=== PATIENT | male | born 1975 | race Caucasian/White ===

== ENCOUNTER 2017-10-28 15:50 | Inpatient (IN) | payer SELFPAY ==
[~2017-10-28] VITALS: Ht 185.4 cm; Wt 64.9 kg
--- NOTE | ~2017-10-28 | EKG ---
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
[2017-10-28 15:50] VITALS: BP 139/78
[~2017-10-28 15:50] MED LIST: CLARITIN10 MG PO; HYDROCODONE BIT1 T11 PO; MOTRIN600 MG PO; MOTRIN800 MG PO; NAPROSYN500 MG PO; NEXIUM40 MG PO
[2017-10-28 16:27] LABS: BILIRUBIN 2+ (NEGATIVE); BLOOD NEGATIVE (NEGATIVE); CLARITY CLEAR (CLEAR); GLUCOSE TRACE (NEGATIVE); KETONE TRACE (NEGATIVE); LEUKO ESTERASE NEGATIVE (NEGATIVE); NITRITE POSITIVE (NEGATIVE); PH 6.5 (5.0-9.0); UROBILINOGEN >= 8.0 E.U./dl (0.2-1.0)
[2017-10-28 16:36] LABS: URINE AMPHETAMINES < 1000 (1000ng/ml); URINE BARBITURATES < 200 (200ng/ml); URINE BENZODIAZEPINES < 200 (200ng/ml); URINE CANNABINOIDS (THC) < 50 (50ng/ml); URINE COCAINE < 300 (300ng/ml); URINE METHADONE < 300 (300ng/ml); URINE OPIATES > 300 (300ng/ml)
[2017-10-28 16:37] LABS: MUCOUS 1+
[2017-10-28 16:38] LABS: COLOR ORANGE (YELLOW)
[2017-10-28 16:42] LABS: BASO # 0.1 10*3/uL (0.0-0.1); BASO % 1.1 % (0.0-1.0); EOS # 0.1 10*3/uL (0.0-0.4); EOS % 0.9 % (1.0-4.0); HEMATOCRIT 38.5 % (42.0-52.0); HEMOGLOBIN 13.9 g/dl (14.0-18.0); LYMPH # 2.3 10*3/uL (1.3-4.4); LYMPH % 24.6 % (27.0-41.0); MEAN CELL VOLUME 101.3 fl (80.0-94.0); MEAN CORPUSCULAR HGB 36.6 pg (27.0-31.0); MEAN CORPUSCULAR HGB CONC 36.1 g/dl (33.0-37.0); MEAN PLATELET VOLUME 11.2 fl (9.6-12.3); MONO # 0.7 10*3/uL (0.1-1.0); MONO % 7.7 % (3.0-9.0); NEUT # 6.2 10*3/uL (2.3-7.9); NEUT % 65.3 % (47.0-73.0); PLATELET COUNT AUTOMATED 138 10*3/uL (130-400); RED CELL DISTRI WIDTH 12.3 % (0-14.5); WHITE BLOOD COUNT 9.5 10*3/uL (4.8-10.8)
[2017-10-28 16:42] LABS: URINE PHENCYCLIDINE < 25 (25ng/ml)
[2017-10-28 16:51] LABS: ACT PARTIAL THROMBO TIME 25.7 SECONDS (20.8-31.5); INTERNATIONAL NORM RATIO 1.3 (2.0-3.5)
[2017-10-28 16:58] LABS: ALBUMIN 3.5 gm/dl (3.1-4.5); ALKALINE PHOSPHATASE 117 U/L (45-117); BUN 8 mg/dl (7-24); CHLORIDE 93 mmol/L (98-107); CREATININE 0.55 mg/dL (0.70-1.30); LIPASE 577 U/L (73-393); SGOT/AST 150 IU/L (3-35); SGPT/ALT 61 U/L (12-78); SODIUM 131 mmol/L (136-145); TOTAL PROTEIN 7.2 gm/dL (6.4-8.2)
[2017-10-28 17:00] LABS: TROPONIN I < 0.015 ng/ml (<0.045)
[2017-10-28 17:45] VITALS: BP 150/102
[2017-10-28 20:00] VITALS: BP 124/55; BP 144/95
[2017-10-29] VITALS: BP 124/52
[2017-10-29 06:50] LABS: BASO # 0.1 10*3/uL (0.0-0.1); BASO % 0.9 % (0.0-1.0); EOS # 0.1 10*3/uL (0.0-0.4); EOS % 1.2 % (1.0-4.0); HEMATOCRIT 34.4 % (42.0-52.0); HEMOGLOBIN 12.1 g/dl (14.0-18.0); LYMPH # 1.6 10*3/uL (1.3-4.4); LYMPH % 23.6 % (27.0-41.0); MEAN CELL VOLUME 102.1 fl (80.0-94.0); MEAN CORPUSCULAR HGB 35.9 pg (27.0-31.0); MEAN CORPUSCULAR HGB CONC 35.2 g/dl (33.0-37.0); MEAN PLATELET VOLUME 11.6 fl (9.6-12.3); MONO # 0.5 10*3/uL (0.1-1.0); MONO % 7.1 % (3.0-9.0); NEUT # 4.5 10*3/uL (2.3-7.9); NEUT % 66.6 % (47.0-73.0); PLATELET COUNT AUTOMATED 115 10*3/uL (130-400); RED BLOOD COUNT 3.37 10*6/uL (4.50-5.90); RED CELL DISTRI WIDTH 12.4 % (0-14.5); WHITE BLOOD COUNT 6.8 10*3/uL (4.8-10.8)
[2017-10-29 07:30] LABS: CHLORIDE 103 mmol/L (98-107); POTASSIUM 3.6 mmol/L (3.5-5.1); SODIUM 137 mmol/L (136-145)
[2017-10-29 07:43] LABS: ALBUMIN 3.1 gm/dl (3.1-4.5); ALKALINE PHOSPHATASE 97 U/L (45-117); BUN 7 mg/dl (7-24); CHOLESTEROL 76 mg/dL (<200); CREATININE 0.39 mg/dL (0.70-1.30); FREE T4 1.02 ng/dl (0.76-1.46); HDL CHOLESTEROL 32 mg/dl (40-60); LDL CHOLESTEROL 30 mg/dL (9-159); PHOSPHOROUS 3.4 mg/dL (2.5-4.9); SGOT/AST 145 IU/L (3-35); SGPT/ALT 57 U/L (12-78); TOTAL PROTEIN 6.3 gm/dL (6.4-8.2); TRIGLYCERIDES 69 mg/dl (<150); VLDL CHOLESTEROL 14 mg/dL (6-40)
[2017-10-29 08:00] VITALS: BP 130/60
[2017-10-29 09:02] LABS: VITAMIN D, 25-HYDROXY 8.6 ng/mL (30-100)
[2017-10-29 17:53] VITALS: BP 160/90
[2017-10-30 06:36] LABS: BASO # 0.1 10*3/uL (0.0-0.1); BASO % 0.8 % (0.0-1.0); EOS # 0.1 10*3/uL (0.0-0.4); EOS % 1.1 % (1.0-4.0); HEMATOCRIT 35.2 % (42.0-52.0); HEMOGLOBIN 12.2 g/dl (14.0-18.0); LYMPH # 1.5 10*3/uL (1.3-4.4); LYMPH % 23.5 % (27.0-41.0); MEAN CELL VOLUME 103.5 fl (80.0-94.0); MEAN CORPUSCULAR HGB 35.9 pg (27.0-31.0); MEAN CORPUSCULAR HGB CONC 34.7 g/dl (33.0-37.0); MEAN PLATELET VOLUME 12.1 fl (9.6-12.3); MONO # 0.5 10*3/uL (0.1-1.0); MONO % 8.1 % (3.0-9.0); NEUT # 4.3 10*3/uL (2.3-7.9); NEUT % 66.2 % (47.0-73.0); PLATELET COUNT AUTOMATED 118 10*3/uL (130-400); RED CELL DISTRI WIDTH 12.1 % (0-14.5); WHITE BLOOD COUNT 6.5 10*3/uL (4.8-10.8)
[2017-10-30 06:40] LABS: ALBUMIN 3.2 gm/dl (3.1-4.5); ALKALINE PHOSPHATASE 98 U/L (45-117); BUN 3 mg/dl (7-24); CHLORIDE 101 mmol/L (98-107); CREATININE 0.38 mg/dL (0.70-1.30); IRON 257 ug/dL (65-175); LIPASE 409 U/L (73-393); POTASSIUM 3.7 mmol/L (3.5-5.1); SGOT/AST 104 IU/L (3-35); SGPT/ALT 50 U/L (12-78); SODIUM 137 mmol/L (136-145); TOTAL IRON BINDING CAPACITY 271 ug/dl (250-450); TOTAL PROTEIN 6.6 gm/dL (6.4-8.2)
[2017-10-30 07:34] VITALS: BP 180/100
[2017-10-30 09:45] VITALS: BP 152/90
[2017-10-30] MEDS ORDERED: VITAMIN D350000 UNIT PO (13:38)
[2017-10-30] MEDS ORDERED: NEXIUM40 MG PO (13:38)
[2017-10-30] MEDS ORDERED: PRINIVIL20 M1 PO (13:38)
== END 2017-10-30 14:11 | disposition home or self-care (01) | DRG 439 ==
LOC: ED 15:50 → EDHOLD 17:38 → 5E 17:38
PROVIDERS: Internal Medicine
DX: K85.20 Alcohol induced acute pancreatitis without necrosis or infection (principal); E87.1 Hypo-osmolality and hyponatremia; R74.0 Nonspecific elevation of levels of transaminase and lactic acid dehydrogenase [LDH]; R00.0 Tachycardia, unspecified; Z72.0 Tobacco use; Z71.6 Tobacco abuse counseling; F11.90 Opioid use, unspecified, uncomplicated; F10.20 Alcohol dependence, uncomplicated; K21.9 Gastro-esophageal reflux disease without esophagitis; D53.9 Nutritional anemia, unspecified; E87.6 Hypokalemia; E83.42 Hypomagnesemia; E83.119 Hemochromatosis, unspecified; Z91.030 Bee allergy status; Z79.899 Other long term (current) drug therapy; Z80.8 Family history of malignant neoplasm of other organs or systems

== ENCOUNTER → 2017-12-22 | Outpatient (CLI) | payer SELFPAY ==
[~2017-12-22] MED LIST changes: +PRINIVIL20 M1 PO; +VITAMIN D350000 UNIT PO
== END | disposition home or self-care (01) ==
LOC: RESCLI 02:34 → SDC 20:13 → RESCLI 20:13
DX: I10 Essential (primary) hypertension (principal); K86.0 Alcohol-induced chronic pancreatitis; K21.9 Gastro-esophageal reflux disease without esophagitis; E55.9 Vitamin D deficiency, unspecified; F17.200 Nicotine dependence, unspecified, uncomplicated; Z79.899 Other long term (current) drug therapy

== ENCOUNTER → 2017-12-28 | Outpatient (CLI) | payer SELFPAY | END | disposition home or self-care (01) | LOC: CT 08:00 | DX: E83.119 Hemochromatosis, unspecified (principal); E83.10 Disorder of iron metabolism, unspecified; I10 Essential (primary) hypertension; F17.200 Nicotine dependence, unspecified, uncomplicated ==

== ENCOUNTER 2018-06-21 00:53 | Inpatient (IN) | payer SELFPAY ==
[~2018-06-21] VITALS: Ht 182.8 cm; Wt 64.6 kg
[2018-06-21] VITALS (11 sets, daily range): BP systolic 112–172; BP diastolic 70–112
--- NOTE | ~2018-06-21 | PR ---
[place], [place] PROGRESS NOTE NAME: ANURADHA MARIA UNIT #: [id number] ROOM: [facility] DOCTOR: LEIGH ANN DURANT MD,FINN BIRTHDATE: [birth year] DOS: 06/26/2018 PULMONARY CRITICAL CARE EVALUATION AND MANAGEMENT SUBJECTIVE: The patient was seen and examined. Remains on the mechanical ventilator. The antibiotic was changed yesterday morning with broad spectrum intravenous antibiotics. He has not been noted any hemodynamic stability and did not require any vasopressor support. The patient has not been noted with any feeding issue and was continued to be fed through the NG tube. Mental status is still not noted appropriate. Yesterday sedation was discontinued. The patient was receiving current mechanical ventilation at the present time with 40% oxygen supplementation. He has been yesterday started on intravenous meropenem. The patient was also started on vancomycin by the primary care attending today. Sedation was continued with Diprivan and Versed combination, which seemed to remain effective. He was noted with fever of 101 degree Fahrenheit to low-grade fever intermittently at times OBJECTIVE: GENERAL: The patient is currently intubated, noted on mechanical ventilation at this time, sedated. VITAL SIGNS: Temperature 101.9 degree Fahrenheit to low grade fever, respiratory 21-23, heart 130, sinus tachycardia 102 beats per minute, blood pressure 160/102-156/99. Intake of 3.575 liters was 551 mL. Pulse oxygen saturation recorded on 40% oxygen 97% saturation. HEENT: Examination shows head was atraumatic. Eyes nonicterus. NECK: Supple. CARDIOVASCULAR: S1, S2 is audible. LUNGS: Noted with decreased breath sounds in the lungs bilaterally. There were no crackles heard. ABDOMEN: Soft, nontender. Bowel sounds present. EXTREMITIES: Noted with mild edema as well. MUSCULOSKELETAL: Noted without any acute deformity. CENTRAL NERVOUS SYSTEM: Currently, the patient is sedated. LABORATORY DATA: Culture of the endotracheal aspiration on 06/23/2018 showed normal yancy. The CBC that was done on 06/26/2018, WBC count 11.3, hemoglobin 12.1, platelet counts were normal. CMP this morning as BUN normal, creatinine normal, glucose 124 and sodium 135. Arterial blood gas this morning, pH of 7.45, pCO2 of 36, pO2 of 67 with 40% oxygen supplementation. The chest x-ray done this morning, endotracheal tube and NG tube are noted in appropriate position, basilar area of infiltration with interval development of pleural fluids bilaterally. CMP this morning as BUN normal, creatinine normal, glucose 124. Sodium 135. Magnesium was 1.4. AST was 72. CBC: WBC count 11.3, hemoglobin 12.1, platelet count 145,000. IMPRESSION: 1. The patient with persistent acute respiratory failure with mostly developing fluid overload, congestive heart failure at this time, but with acute pneumonia and ventilator-associated pneumonia, superimposed cannot be completely excluded. 2. Recent pancreatitis with chronic alcohol dependence. [place], [place] PROGRESS NOTE NAME: ANURADHA MARIA UNIT #: [id number] ROOM: [facility] DOCTOR: LEIGH ANN DURANT MD,FINN BIRTHDATE: [birth year] 3. Mild leukocytosis and anemia. PLAN OF MANAGEMENT: The patient will be given 1 dose of IV Lasix 40 mg daily. Continue ventilatory support, assessment and correction of the electrolytes will be continued. Continue nutrition support as well. Other additional treatment changes would be made based on the progression of the illness. From tomorrow, the nutrition support will be done gradually to increase the maximal calorie intake as needed. Other therapy, plan of management, and additional treatment changes will be made for based on progression of the illness. Usual care, other therapy, plan of management, and care plan. Prognosis of the patient remains guarded. After the culture results new one when available, make further modification of antibiotics accordingly. Order the endotracheal aspirate, Gram stain and culture as well. Total time in pulmonary critical evaluation and management today was 34 minutes. FINN BELTRÁN MD CM:PNTRANS [phone] FINN DURANT MD 06/27/18 0134 interface
--- NOTE | ~2018-06-21 | PR ---
[place], [place] PROGRESS NOTE NAME: ANURADHA MARIA UNIT #: [id number] ROOM: 521 DOCTOR: LEIGH ANN DURANT MD,FINN BIRTHDATE: [birth year] DOS: 06/29/2018 PULMONARY PROGRESS NOTE The patient is independently seen and examined in aeti-bg-[id number] encounter, history was confirmed, physical examination performed, labs were reviewed. Note done by the medical lab technician was approved as well. The assessment for today's visit was personally completed. SUBJECTIVE: The patient has been noted very comfortable at this time, awake, alert and oriented this morning of assessment, comfortably lying in the bed. Denies any symptoms of chest pain, coughing, or shortness of breath as well. Denies symptoms of hemoptysis. Complaining of some nonspecific abdominal pain as well. Denies symptoms of nausea or vomiting. Remaining systems were reviewed, they were noted all negative. OBJECTIVE: VITAL SIGNS: Normal temperature up to 99.2 degrees Fahrenheit, respiratory rate 14-20, heart rate of 99-104, blood pressure 180/95-135/85. The pulse oxygen saturation on room air is 95% saturation. HEENT: Head is atraumatic. Dry nasal mucosa. NECK: Supple. CARDIOVASCULAR: S1 and S2 audible. LUNGS: Noted without any wheezing or crackles at the present time. ABDOMEN: Soft, nontender. Bowel sounds present. EXTREMITIES: Without acute edema. MUSCULOSKELETAL: Without acute deformities. CENTRAL NERVOUS SYSTEM: Appeared to be intact in general. LABORATORY DATA: CMP today - sodium 135, potassium 3.4. AST 93, ALT normal. CBC this morning - WBC count 8.9, hemoglobin 11.7, platelet count normal. DIAGNOSTIC DATA: Chest x-ray that was done this morning, 1 view, reviewed, noted with continued improvement in aeration of the left lung. IMPRESSION: The patient who has been currently noted with: 1. Resolving acute pneumonia with current antibiotics, status post liberation of mechanical ventilation, improvement in mental status with alcohol withdrawal. 2. Clinical resolution of acute pancreatitis. 3. History of chronic alcohol use. 4. Electrolyte imbalance. 5. Mild hypokalemia. 6. Acute exacerbation of chronic obstructive pulmonary disease, which is improving. PLAN OF MANAGEMENT: Supplementation of potassium ordered, intake of food. Physical therapy and occupational therapy. Bronchodilators. Decrease Solu-Medrol dose to 40 mg daily. Transfer the patient from ICU to medical floor. Physical therapy, other treatment therapy plan of management and care plan. Other supportive plan of management with additional treatment changes [place], [place] PROGRESS NOTE NAME: ANURADHA MARIA UNIT #: [id number] ROOM: 521 DOCTOR: FINN QUINTERO MD BIRTHDATE: [birth year] will be going to be made based on progression of the illness. FINN BELTRÁN MD CM:ASHLEY [id number] FINN DURANT MD 08/13/18 0907 interface
--- NOTE | ~2018-06-21 | PR ---
[place], [place] PROGRESS NOTE NAME: ANURADHA MARIA UNIT #: [id number] ROOM: 521 DOCTOR: LEIGH ANN DURANT MD,FINN BIRTHDATE: [birth year] DOS: 07/01/2018 PULMONARY PROGRESS NOTE SUBJECTIVE: The patient is independently seen and examined in [id number] encounter, history was confirmed. Physical examination was performed. Labs were reviewed. Assessment and management for today's note was personally completed. Note done by the lead medical technologist was approved. He has been noted quite comfortable. The patient is sitting on the side of bed this morning without any acute distress. He has not been reported any symptoms of chest pain. Coughing has been noted minimal. OBJECTIVE: VITAL SIGNS: Temperature normal, respiratory rate 20, heart rate 107, blood pressure 130/78. Pulse oxygen saturation recorded on room air 97% saturation. HEENT: Head was atraumatic. Eyes nonicterus. NECK: Supple. CARDIOVASCULAR: S1, S2 audible. LUNGS: The patient noted clear to auscultation bilaterally. ABDOMEN: Soft, nontender, bowel sounds present. EXTREMITIES: No acute edema. IMPRESSION: Resolved acute respiratory failure, resolving acute pneumonia gradually and progressively, acute pancreatitis, and alcohol dependence. Acute exacerbation of chronic obstructive pulmonary disease, resolving as well. PLAN OF TREATMENT: Discharge planning could be started per primary care attending. No other change in treatment at this time will be recommended. FINN BELTRÁN MD CM:PNTRANS [id number] FINN DURANT MD 07/02/18 0011 interface
--- NOTE | ~2018-06-21 | CON ---
[place], [place] REPORT OF CONSULTATION NAME: ANURADHA MARIA UNIT #: [id number] ROOM: 521 DOCTOR: LEIGH ANN DURANT MD,FINN BIRTHDATE: [birth year] DOS: 06/24/2018 PULMONARY/CRITICAL CARE CONSULTATION, EVALUATION AND MANAGEMENT CONSULTATION REQUESTED BY: Hospitalist Service. REASON FOR CONSULTATION: Acute respiratory failure, pancreatitis, and change in mental status as well with alcohol withdrawal. HISTORY OF PRESENT ILLNESS: The patient is a 42-year-old white male who has been hospitalized under the care of Hospitalist Service on 06/21/2018. History in this documentation is from review of the medical records by the other physicians' notes as the patient is unable to give me any history. The patient is admitted to the hospital with past history of pancreatitis, related to chronic alcoholism. The patient is admitted to hospital because of increased abdominal pain with swelling of the stomach reported. The patient is noted with diffuse abdominal pain as well. Pain has been reported on a scale of 10/10. The patient has been given pain medications. He continues to drink alcohol on occasion in the form of vodka. He has not been reported with any respiratory symptoms on admission. He has been treated conservatively for pancreatitis, diagnosed as a problem in the Intensive Care Unit. Also was reported as a diagnosis of pneumonia as well, left lower lobe. The patient has been noted with increased oxygen requirement with alcohol withdrawal, with increased sedation, change in mental status, was intubated, started on mechanical ventilation yesterday. The patient currently remains on mechanical ventilator on assist control, volume control mechanical ventilation, oxygen supplementation, was gradually decreased up to 40% with assist control mode of mechanical ventilation. REVIEW OF SYSTEMS: Could not be completed since the patient currently intubated and noted on mechanical ventilation, receiving sedation in the form of intravenous Diprivan. PAST MEDICAL HISTORY: Reported with: 1. History of pancreatitis in the past as well. 2. Chronic alcohol use in the form of vodka. 3. Macrocytic anemia, secondary to alcohol dependence. 4. Gastroesophageal reflux. 5. History of hemochromatosis. 6. Essential hypertension. 7. Chronic opiate dependence. 8. Separation of the right acromioclavicular joint. 9. Nicotine dependence. PAST SURGICAL HISTORY: None reported. SOCIAL HISTORY: The patient has a history of alcohol dependence and tobacco use noted chronically. The details of the patient's tobacco use are unknown. There is no history of illicit drug use reported. [place], [place] REPORT OF CONSULTATION NAME: ANURADHA MARIA UNIT #: [id number] ROOM: 521 DOCTOR: LEIGH ANN DURANT MD,FINN BIRTHDATE: [birth year] FAMILY HISTORY: Father of unknown cancer. Mother is living, history of cervical cancer reported. HOME MEDICATIONS: Listed are vitamin D, omeprazole, and lisinopril. CURRENT ACTIVE MEDICATIONS: Administered on this hospitalization were noted as enalapril intravenously p.r.n. for hypertensive response, Cardizem via the NG tube, DuoNeb q. four hours, lisinopril, nicotine replacement patch, Lovenox for DVT prophylaxis, Peridex rinse, intravenous midazolam p.r.n. use 5 mg, IV Rocephin, Zithromax, lorazepam, and some other p.r.n. meds. DRUG ALLERGIES: Noted as no known drug allergies. PHYSICAL EXAMINATION: GENERAL: This is a 42-year-old male patient, currently intubated with mechanical ventilation, without any distress. Height of 6 feet, weight of 142 pounds, BMI 19.3. VITAL SIGNS: Low-grade fever rectally noted as 100 degrees Fahrenheit, with normal temperature otherwise. Respiratory rate recorded as 28-24, heart rate is sinus tachycardia 120-125 beats per minute, blood pressure 172/113-162/112 recorded. In last 24 hours, intake 3.12 liters, output was 953 mL. Pulse ox saturation on 40% oxygen is 95% saturation with assist control, volume control mechanical ventilation. HEENT: Examination shows head is atraumatic. Eyes nonicterus. The patient is currently intubated. NECK: Supple. CARDIOVASCULAR: S1 and S2 audible. LUNGS: Noted with mild decreased breath sounds. There was no evidence of wheezing. No crackles heard on auscultation. ABDOMEN: Soft, nontender. Bowel sounds present. EXTREMITIES: Noted without any acute edema, loss of muscle mass. VISIBLE SKIN: No lesions or rashes. CENTRAL NERVOUS SYSTEM: Cannot be examined at the present time. LABORATORY DATA: Admission lactic acid on 06/21/2018 was 2.2. CMP on 06/21/2018 on admission: Normal BUN and creatinine, glucose normal, sodium 129, potassium 3.2, AST of 149, ALT normal, alkaline phosphatase 208, lipase 1422, amylase 214. Ethyl alcohol level 287. CBC on 06/21/2018 on admission: WBC count 16.5, hemoglobin 11.8, MCV 105, platelet count normal. Ammonia level this morning is noted normal at 18. CBC that was done yesterday: WBC count 7.8, hemoglobin 10.6, and platelet count was normal. CMP that was done yesterday: Normal BUN and creatinine remained, sodium 135, total bilirubin 1.7, albumin 2.5, total protein of 6.1. Lipase 545. CMP this morning essentially noted sodium 133, potassium 3.3. AST of 89, ALT normal. CBC this morning: WBC count 12.9, hemoglobin 11.9, platelet count normal. Endotracheal aspirate Gram stain: Many white blood cells, rare Gram-positive cocci in pairs, rare Gram-positive bacilli. Arterial blood gases were done yesterday, first arterial blood gas at 1005 a.m. - pH of 7.43, pCO2 of 40, pO2 of 83. This was done on oxygen. The arterial blood gas later done post-intubation - pH of 7.43, pCO2 of 40.8, pO2 of 80 on 40% oxygen. The arterial blood gas this morning - pH of 7.49, pCO2 of 32, [place], [place] REPORT OF CONSULTATION NAME: ANURADHA MARIA UNIT #: [id number] ROOM: 521 DOCTOR: LEIGH ANN DURANT MD,[facility] BIRTHDATE: [birth year] pO2 of 80 on 40% oxygen. RADIOLOGY DATA: Review of the radiology data was personally done. CT thoracic images obtained with CT scan of the abdomen on 06/21/2018 does not show any evidence of acute pulmonary infiltration in the lower lungs. A small area of bronchiectasis noted in the right middle lobe area. Abdominal findings were reported by the radiologist as diffuse circumferential thickening, intramural edema of the stomach, large bowel and small bowel was reported. Stranding was also reported from the root of mesentery, including the region of the pancreatic head and uncinate process. Chest x-ray this morning noted as endotracheal tube in place, a small hazy infiltration in the right middle lobe still suspected. IMPRESSION: The patient who has been currently admitted to the hospital noted with: 1. Acute pancreatitis and other abdominal problems at this time noted with change in mental status related to alcohol withdrawal, requiring intubation with mechanical ventilation, and respiratory failure. 2. Respiratory alkalosis, which is noted at the present time, related to mechanical ventilation as well. 3. The patient with a history of chronic alcohol dependence and tobacco use. 4. Area of bronchiectasis with possible pneumonia in the right lung cannot be completely excluded with current findings, and community-acquired pneumonia would be considered. 5. Severe protein-calorie malnutrition status was also noted. 6. Hypokalemia, most likely related with strong possibility of refeeding syndrome or related to current pancreatic problem considered. 7. Persistent mild hyponatremia as well. PLAN OF MANAGEMENT: The patient's mechanical ventilator changes have been made, decreased the tidal volume to minimize the respiratory alkalosis. Continue sedation. Continue ventilator bundle management. Continue antibiotics. Monitor culture results. Close monitoring of the patient's abdominal process as well. Supportive care with conservative treatment for the patient's current abdominal findings will be continued. Lipase has been improving. The patient could be started on feeding from NG tube, if not started, with close monitoring. Correction of electrolytes. DVT prophylaxis to be continued. Continue nicotine replacement patches as he has a history of chronic nicotine abuse. Continue current sedation combination. Other therapy plan of management, additional treatment changes will be made based on progression of the illness. Total time in pulmonary and critical care evaluation and management was 38 minutes. [place], [place] REPORT OF CONSULTATION NAME: ANURADHA MARIA UNIT #: [id number] ROOM: 521 DOCTOR: FINN QUINTERO MD BIRTHDATE: [birth year] FINN BELTRÁN MD CM:CONSTR:REPORT OF CONSULTATION [id number] 08/13/18 0905 interface
--- NOTE | ~2018-06-21 | PR ---
[place], [place] PROGRESS NOTE NAME: ANURADHA MARIA UNIT #: [id number] ROOM: 521 DOCTOR: FINN QUINTERO MD BIRTHDATE: [birth year] DOS: 06/30/2018 PULMONARY PROGRESS NOTE SUBJECTIVE: The patient independently seen and examined, [id number] encounter today. History was confirmed. Physical examination performed. Labs was reviewed. The note done by the medical program specialist was approved as well. The patient assessment and managed for today's visit were personally completed. He has been comfortably resting and staying on the bed, has been transferred from ICU to the medical floor. Denies symptoms of chest pain or any abdominal pain at this time. Denies symptoms of hemoptysis. OBJECTIVE: VITAL SIGNS: For the patient, which has been recorded shows a normal temperature, respiratory rate 18, heart 115/99, blood pressure 150/102-144/88. Pulse oxygen saturation recorded as 90% saturation at rest on room air. HEENT: Examination shows head was atraumatic. Eyes nonicterus. NECK: Supple. CARDIOVASCULAR: S1, S2 audible. LUNGS: The patient was noted without any wheezing or crackles this morning. ABDOMEN: Soft, nontender. Bowel sounds present. EXTREMITIES: No acute change. IMPRESSION: 1. The patient with progressive resolution of acute pneumonia with resolved acute pancreatitis with a history of chronic alcohol dependence. 2. Resolving acute exacerbation of chronic obstructive pulmonary disease as well. PLAN OF MANAGEMENT: Continuation of bronchodilators, and oxygen supplementation. The patient has been given meropenem and vancomycin. De-escalation of antibiotic will be made with the cultures reviewed. The patient does not show any abnormal organisms, so the vancomycin will be discontinued for that reason. [place], [place] PROGRESS NOTE NAME: ANURADHA MARIA UNIT #: [id number] ROOM: 521 DOCTOR: FINN QUINTERO MD BIRTHDATE: [birth year] FINN BELTRÁN MD CM:PNTRANS [id number] FINN DURANT MD 06/30/18 1536 interface
--- NOTE | ~2018-06-21 | PR ---
[place], [place] PROGRESS NOTE NAME: ANURADHA MARIA UNIT #: [id number] ROOM: [facility] DOCTOR: LEIGH ANN DURANT MD,FINN BIRTHDATE: [birth year] DOS: 06/28/2018 PULMONARY PROGRESS NOTE SUBJECTIVE: The patient remains in the Intensive Care Unit, was liberated from mechanical ventilator. The patient has not been noted with any ongoing acute new complaint at the present time but not noted responsive to the vocal commands. The patient is noted agitated requiring 3-point restraints and has been given Haldol. This morning, the patient has been noted drowsy and sleepy, opening his eyes partially to vocal commands. He does not follow vocal commands. Prior to liberation of mechanical ventilation, the patient was following vocal commands. Review of systems could not be completed because of current change in mental status. Past, family, social, surgical history were reviewed from the chart and noted unchanged since my consultation done recently on this admission. OBJECTIVE: GENERAL: The patient is 42 years old at this time, currently lying in the bed, noted somewhat restless and his eyes closed, but the patient opens his eyes to vocal commands, but there is in no distress with oxygen supplementation given by nasal cannula post-liberation from mechanical ventilation. VITAL SIGNS: Temperature is ranging between 100.5 degrees Fahrenheit and normal temperature, respiratory rate 14-18, heart rate 102-94, blood pressure 183/111-141/88. The pulse oxygen saturation recorded on 4 liters nasal cannula as 100% saturation. HEENT: Examination shows head is atraumatic. Eyes nonicterus. NECK: Supple. CARDIOVASCULAR: S1 and S2 audible. LUNGS: Decreased breath sounds in the lungs bilaterally. ABDOMEN: Soft, nontender. Bowel sounds present. EXTREMITIES: Noted without any acute edema. MUSCULOSKELETAL: Without any acute deformities. CENTRAL NERVOUS SYSTEM: At this time, change in mental status but moving all the upper extremities and lower extremities at his own will. LABORATORY DATA: CMP this morning - BUN normal, creatinine normal, sodium 134, potassium 3.4, magnesium 1.4. Culture of the endotracheal aspirate noted as normal yancy. CBC this morning - WBC count normal, hemoglobin 11.2, platelet count normal. Arterial blood gas that was done yesterday on CPAP mode of mechanical ventilation - pH was 7.46, pCO2 of 40, pO2 of 61, on 30% oxygen prior to intubation with mechanical ventilation. IMPRESSION: 1. Changes in mental status, multifactorial, with possible consideration of current use of Ativan, history of alcohol use previously and withdrawal from the alcohol, and other illnesses. 2. Hypomagnesemia. 3. Acute pneumonia. [place], [place] PROGRESS NOTE NAME: ANURADHA MARIA UNIT #: [id number] ROOM: [facility] DOCTOR: LEIGH ANN DURANT MD,FINN BIRTHDATE: [birth year] PLAN OF THERAPY: Supplementation of magnesium. Start the patient on Haldol 5 mg every four hours. Avoid using the Ativan if possible. Continue DVT prophylaxis. Continuation of the bronchodilator administration. Additional treatment changes will be ordered based on progression of the illness. FINN BELTRÁN MD CM:PNTRANS [phone] FINN DURANT MD 06/28/18 2647 interface
--- NOTE | ~2018-06-21 | PR ---
[place], [place] PROGRESS NOTE NAME: ANURADHA MARIA UNIT #: [id number] ROOM: [facility]1 DOCTOR: LEIGH ANN DURANT MD,FINN BIRTHDATE: [birth year] DOS: 06/27/2018 PULMONARY CRITICAL CARE EVALUATION AND MANAGEMENT SUBJECTIVE: The patient was seen and examined on 06/27/2018, was noted deeply sedated this morning of assessment. Continue the oxygen supplementation with the use of mechanical ventilation. Low-grade fever was noted. Feeding was continued and tolerated without difficulty. Continue broad-spectrum intravenous antibiotics with the repeat culture, which has been taken noted in the process. He has not been noted with any acute hemodynamic instability in the last 24 hours or any changes in the oxygen requirement on the mechanical ventilator. The patient is receiving the oxygen supplementation at 30% oxygen supplementation from yesterday that was decreased from 40-30% with pulse oxygen saturation best recorded 95-96% saturation. OBJECTIVE: GENERAL: The patient is currently intubated. The patient is deeply sedated. VITAL SIGNS: His T-max was noted 100 degrees Fahrenheit to low-grade 99 degree Fahrenheit, respiratory 24-19, heart rate 96-91, blood pressure 141/90-142/92. Pulse oxygen saturation recorded on 30% is 96% saturation. HEENT: Shows the patient currently intubated. Orogastric tube is in place. Head was atraumatic. Poor dental hygiene. NECK: Supple. CARDIOVASCULAR SYSTEM: S1, S2 audible. LUNGS: The patient was noted with decreased breath sounds without any wheezing or crackles in the lower lungs. ABDOMEN: Soft, nontender. Bowel sounds present. EXTREMITIES: No new changes, edema, clubbing or cyanosis. MUSCULOSKELETAL: Without any acute deformities. CENTRAL NERVOUS SYSTEM: The sedation at this time was noted by the nursing staff. The patient has been noted thrashing in the bed with reduction of sedation. LABORATORY DATA: Arterial blood gas that was done this morning with assist control, volume control, 30% oxygen, pH of 7.43, pCO2 of 43, pO2 83 with correction of respiratory alkalosis noted. CMP this morning; glucose 130, BUN normal and creatinine normal. Albumin 2.4. AST and ALT continued to resolve. AST mildly elevated at 62 today. CBC: WBC count 11.2, hemoglobin of 11, hematocrit 32.1, platelet count normal at 85% segmented neutrophils. Blood culture on 13th of this month reported finally no growth. Endotracheal aspirate of 06/26/2018; many white blood cells, moderate epithelial cells, moderate gram-positive cocci in pairs and chains with few gram-positive bacilli. IMPRESSION: 1. The patient who has been currently noted with acute respiratory failure with acute pneumonia of the lower lung as well. 2. The patient with acute pancreatitis, seemed to be resolved at this time, clinically. 3. History of chronic dependent as well as with the tobacco use as well. 4. Acute exacerbation of chronic obstructive pulmonary disease with improvement [place], [place] PROGRESS NOTE NAME: ANURADHA MARIA UNIT #: [id number] ROOM: [facility] DOCTOR: FINN QUINTERO MD BIRTHDATE: [birth year] in the wheezing was noted in the last 48 hours. 5. Severe protein-calorie malnutrition as well. PLAN OF MANAGEMENT: Decrease Solu-Medrol dose 40 mg b.i.d. Discontinue sedation. Completely reassessed the mental status and weaning to be started as well. Peripheral edema, the patient was responding to the use of the Lasix. The patient was given 1 dose of Lasix yesterday and addition of 2 doses of Lasix will be given today and tomorrow. This will result in improvement in peripheral edema. Continue current antibiotic, broad spectrum until the culture results become available for de-escalation to be done after that. Continue maximizing nutritional support as the patient continues to remain intubated from the NG tube. Other therapy, plan of management, and other plan of treatment otherwise will be changed based on progression of his illness. Usual care. All the ventilator bundle management remains in progress. Total time of pulmonary and critical care evaluation and management was 36 minutes. FINN BELTRÁN MD CM:PNTRANS [phone] FINN DURANT MD 06/28/18 0351 interface
--- NOTE | ~2018-06-21 | PR ---
[place], [place] PROGRESS NOTE NAME: ANURADHA MARIA UNIT #: [id number] ROOM: 521 DOCTOR: LEIGH ANN DURANT MD,FINN BIRTHDATE: [birth year] DOS: 06/25/2018 PULMONARY CRITICAL CARE EVALUATION AND MANAGEMENT SUBJECTIVE: The patient was noted on mechanical ventilator. Continue mechanical ventilation. Sedation has been discontinued. The patient was not fully awake, follow vocal commands purposefully. Eyes were open partially at time. He has been sedated with IV Diprivan. He has been noted low-grade fever as well. The patient has been also noted with increased infiltration low-grade fever was also seen. Leukocytosis patient remains persistent. Feeding from the NG tube was started. Review of systems cannot be completed. OBJECTIVE: VITAL SIGNS: Temperature 100.9 degree Fahrenheit - 99.3 degree Fahrenheit, respiratory rate 25 - 34, heart rate of 105 - 113, sinus tachycardia and blood pressure 149/98 - 146/99. HEENT: Examination shows head was atraumatic. Eyes nonicterus. NECK: Supple. CARDIOVASCULAR: S1, S2 audible. LUNGS: Expiratory wheezing present in the lungs bilaterally today. There were no crackles. Breaths are noted mildly diminished. ABDOMEN: Soft, nontender. Bowel sounds present. EXTREMITIES: The patient was noted without any acute edema. MUSCULOSKELETAL: The patient was noted without any acute deformities. CENTRAL NERVOUS SYSTEM: The patient is currently sedated. LABORATORY DATA: The endotracheal aspirate was noted light growth of yeast. CBC done on 06/25/2018, WBC count of 14,000, hemoglobin 9.4, platelet count 151,000, MCV 109. CMP was done this morning as glucose 108, BUN 10, creatinine was normal. Sodium 135. Albumin 2.3, AST 88, ALT normal, alkaline phosphatase were normal. Chest x-ray done this morning was noted with infiltration in the right lower lobe. IMPRESSION: 1. The patient with acute pneumonia in the right lower lobe. 2. The patient with acute pancreatitis, clinically resolving. 3. Protein-calorie malnutrition. 4. Chronic heavy alcohol dependence as well as tobacco use. 5. Acute exacerbation of chronic obstructive pulmonary disease. 6. History of chronic nicotine dependence. PLAN OF TREATMENT: The patient was started on Solu-Medrol 40 mg q. 8 hours because of the active wheezing, acute exacerbation of chronic obstructive pulmonary disease, also antibiotic was changed to meropenem. Follow the culture results. Monitor mental status. The patient not ready for weaning from mechanical ventilator at this time because of her mental status changes. We will continue to be monitor closely for that. Nutrition support, close monitor for refeeding syndrome. Other therapy, plan of management. Additional treatment changes will be made based on progression of the illness. [place], [place] PROGRESS NOTE NAME: ANURADHA MARIA UNIT #: [id number] ROOM: 521 DOCTOR: FINN QUINTERO MD BIRTHDATE: [birth year] Total time in pulmonary and critical care evaluation and management was 35 minutes. FINN BELTRÁN MD CM:PNTRANS [phone] FINN DURANT MD 08/13/18 0905 interface
--- NOTE | ~2018-06-21 | PR ---
[place], [place] PROGRESS NOTE [id number] UN[facility] #: [id number] ROOM: 521 DOCTOR: ANA LUISA BAUER DO BIRTHDATE: [birth year] DOS: 06/30/2018 PULMONARY PROGRESS NOTE SUBJECTIVE: The patient was seen and examined this morning at bedside. The patient looks much better this morning. The patient states he feels much better. The patient states he has been walking in the hallways. The patient denies shortness of breath. The patient states that he is going to quit drinking alcohol. The patient states he understands how sick he was. The patient denies any chest pain, fevers or chills. OBJECTIVE: VITAL SIGNS: The patient's temperature was 98.7, pulse is 101, respiratory rate is 17, blood pressure is 153/99, pulse ox 93% on room air. HEENT: Normocephalic, atraumatic. Eyes nonicteric. NECK: Supple, nontender. CARDIOVASCULAR: S1, S2. LUNGS: Without any wheezes or crackles bilaterally. ABDOMEN: Soft, nontender. Bowel sounds present. EXTREMITIES: Without any acute edema in bilateral lower extremities. MUSCULOSKELETAL: Without any acute deformities. CENTRAL NERVOUS SYSTEM: Grossly intact. LABORATORY DATA: White blood cell count 8.2, hemoglobin 10.8, hematocrit 31.0, platelet count 229. Chemistries: Sodium 136, potassium 3.4, chloride 99, carbon dioxide 28, BUN 6, creatinine 0.4, glucose 82, calcium 8.8. DIAGNOSTIC DATA: Sputum cultures are negative to date. Blood cultures are negative to date. ASSESSMENT: 1. Alcohol dependence. 2. Clinical resolution of acute pancreatitis. 3. Chronic alcohol abuse. 4. Electrolyte imbalance. 5. Mild hypokalemia. 6. Exacerbation of chronic obstructive pulmonary disease. 7. Bilateral pneumonia. PLAN OF MANAGEMENT: Encourage p.o. intake. Physical and occupational therapy. Continue bronchodilators. Decrease Solu-Medrol 40 mg a day. Begin discharge planning. The patient remains on meropenem at this time. Any additional changes will be based on progression of illness. Discharge planning needs to be performed to help the patient continued to be free from alcohol. Thank you very much. [place], [place] PROGRESS NOTE NAME: ANURADHA MARIA UNIT #: [id number] ROOM: 521 DOCTOR: ANA LUISA BAUER DO BIRTHDATE: [birth year] Joss Bauer DO FINN BELTRÁN MD CM:ASHLEY [phone] ANA LUISA BAUER DO 06/30/18 1659 interface
--- NOTE | 2018-06-21 02:10 | NUR ---
LAB CALLED LA 2.2 DR FUENTES NOTIFIED
[2018-06-21 02:18] LABS: ALBUMIN 2.9 gm/dl (3.1-4.5); ALKALINE PHOSPHATASE 208 U/L (45-117); BUN 12 mg/dl (7-24); CHLORIDE 92 mmol/L (98-107); CREATININE 0.94 mg/dL (0.70-1.30); LIPASE 1422 U/L (73-393); SGOT/AST 149 IU/L (3-35); SGPT/ALT 56 U/L (12-78); SODIUM 129 mmol/L (136-145)
[2018-06-21 02:46] LABS: BASO # 0.1 10*3/uL (0.0-0.1); BASO % 0.8 % (0.0-1.0); EOS # 0.1 10*3/uL (0.0-0.4); EOS % 0.8 % (1.0-4.0); HEMATOCRIT 33.1 % (42.0-52.0); HEMOGLOBIN 11.8 g/dl (14.0-18.0); LYMPH # 3.8 10*3/uL (1.3-4.4); MEAN CELL VOLUME 105.4 fl (80.0-94.0); MEAN CORPUSCULAR HGB 37.6 pg (27.0-31.0); MEAN CORPUSCULAR HGB CONC 35.6 g/dl (33.0-37.0); MEAN PLATELET VOLUME 10.6 fl (9.6-12.3); MONO # 1.2 10*3/uL (0.1-1.0); MONO % 7.4 % (3.0-9.0); NEUT # 11.1 10*3/uL (2.3-7.9); PLATELET COUNT AUTOMATED 162 10*3/uL (130-400); RED BLOOD COUNT 3.14 10*6/uL (4.50-5.90); RED CELL DISTRI WIDTH 13.9 % (0-14.5); WHITE BLOOD COUNT 16.5 10*3/uL (4.8-10.8)
[2018-06-21 09:16] LABS: BILIRUBIN NEGATIVE (NEGATIVE); BLOOD NEGATIVE (NEGATIVE); CLARITY SL CLOUDY (CLEAR); COLOR YELLOW (YELLOW); GLUCOSE NEGATIVE (NEGATIVE); KETONE NEGATIVE (NEGATIVE); LEUKO ESTERASE NEGATIVE (NEGATIVE); NITRITE NEGATIVE (NEGATIVE); PH 5.5 (5.0-9.0); SPECIFIC GRAVITY <= 1.005 (1.005-1.030)
[2018-06-21 09:28] LABS: EPITHELIAL CELLS 0-2
--- NOTE | 2018-06-21 10:00 | NUR ---
A 42YO MALE, admitted to , under the services of LAUREN Ellison DO with a diagnosis of ELEVATED TRANSAMINASE LEVEL/ALCOHOL INTOXICATION. Chief complaint is RIGHT SIDE ABDOMINAL PAIN, LEGS NUMB, INCREASED BOWEL MOVEMENTS. Patient arrived via stretcher from ER. Monitor applied. Initial assessment completed. Vital signs taken and recorded. LAUREN ELLISON DO notified of admission to the unit. Orders received. See assessment for past medical history, medications and allergies. Patient and/or family oriented to unit. [facility]. Clothing/patient valuable form completed. [place] ABDALLA
--- NOTE | 2018-06-21 10:11 | NUR ---
MEDICATED WITH PRN IV DILAUDID FOR RIGHT SIDED ABDOMINAL PAIN.
[2018-06-21] MEDS ORDERED: VITAMIN D350000 UNIT PO (10:53)
--- NOTE | 2018-06-21 11:00 | NUR ---
PRN IV DILAUDID EFFECTIVE, PER PATIENT.
--- NOTE | 2018-06-21 14:09 | NUR ---
MEDICATED WITH PRN IV DILAUDID FOR RIGHT SIDED ABDOMINAL PAIN. ALSO ADMINISTERED SCHEDULED ATIVAN FOR TREMORS.
--- NOTE | 2018-06-21 18:00 | NUR ---
MEDICATED WITH PRN IV DILAUDID FOR RIGHT SIDE ABDOMINAL PAIN.
--- NOTE | 2018-06-21 18:30 | NUR ---
PRN IV DILAUDID EFFECTIVE, PER PATIENT.
--- NOTE | 2018-06-21 20:50 | NUR ---
CALLED AND NOTIFIED DR. GARVIN OF ELEVATED BP AND ORDERS BEING RECIEVED.
--- NOTE | 2018-06-21 21:25 | NUR ---
DILAUDID GIVEN PER ORDER FOR ABD PAIN RATED "8" PER PT. SEE MAR.
--- NOTE | 2018-06-21 22:25 | NUR ---
DILAUDID EFFECTIVE FOR ABD PAIN RATED PAIN "6"
[2018-06-22] VITALS: BP 140/87
--- NOTE | 2018-06-22 00:04 | NUR ---
24 HR chart check completed.
--- NOTE | 2018-06-22 01:48 | NUR ---
DILAUDID GIVEN PER ORDER FOR ABD. PAIN RATED "8" SEE MAR.
--- NOTE | 2018-06-22 02:48 | NUR ---
DILAUDID EFFECTIVE FOR ABD PAIN PER PT.
--- NOTE | 2018-06-22 04:58 | NUR ---
DILAUDID GIVEN PER ORDER FOR ABD PAIN RATED "8". SEE MAR. PT. HAVING VISIBLE TREMORS AND PLAYING IV TUBING. REORIENTED PT. EASILY.
--- NOTE | 2018-06-22 05:50 | NUR ---
PER PT. VINES HELPING WITH ABD PAIN.
[2018-06-22 07:13] LABS: HEMATOCRIT 29.5 % (42.0-52.0); HEMOGLOBIN 10.1 g/dl (14.0-18.0); MEAN CORPUSCULAR HGB 37.3 pg (27.0-31.0); MEAN CORPUSCULAR HGB CONC 34.2 g/dl (33.0-37.0); MEAN PLATELET VOLUME 10.6 fl (9.6-12.3); PLATELET COUNT AUTOMATED 136 10*3/uL (130-400); RED BLOOD COUNT 2.71 10*6/uL (4.50-5.90); WHITE BLOOD COUNT 7.6 10*3/uL (4.8-10.8)
[2018-06-22 07:15] LABS: MEAN CELL VOLUME 108.9 fl (80.0-94.0)
[2018-06-22 07:35] LABS: VITAMIN D, 25-HYDROXY 15.9 ng/mL (30-100)
[2018-06-22 07:36] LABS: ALBUMIN 2.5 gm/dl (3.1-4.5); ALKALINE PHOSPHATASE 103 U/L (45-117); BUN 7 mg/dl (7-24); CHLORIDE 98 mmol/L (98-107); CHOLESTEROL 61 mg/dL (<200); PHOSPHOROUS 3.4 mg/dL (2.5-4.9); POTASSIUM 3.9 mmol/L (3.5-5.1); SODIUM 134 mmol/L (136-145); TRIGLYCERIDES 54 mg/dl (<150); VLDL CHOLESTEROL 11 mg/dL (6-40)
[2018-06-22 07:47] LABS: CREATININE 0.39 mg/dL (0.70-1.30); HDL CHOLESTEROL 28 mg/dl (40-60); IRON 188 ug/dL (65-175); LDL CHOLESTEROL 22 mg/dL (9-159); LIPASE 382 U/L (73-393); SGOT/AST 107 IU/L (3-35); SGPT/ALT 41 U/L (12-78); TOTAL IRON BINDING CAPACITY 181 ug/dl (250-450)
[2018-06-22 07:48] LABS: INTERNATIONAL NORM RATIO 1.4 (2.0-3.5)
--- NOTE | 2018-06-22 08:06 | NUR ---
NOTIFIED DR ROSS THAT PT MAGNESIUM LEVEL IS 0.9.
[2018-06-22 08:09] LABS: BASOPHILS 2 % (0-1); PLATELET SUFFICIENCY NORMAL (NORMAL); TOTAL CELLS COUNTED 100 #CELLS
[2018-06-22 08:14] LABS: FERRITIN 2634.7 ng/mL (22.0-322.0)
[2018-06-22 09:00] VITALS: BP 160/82
[2018-06-22 12:00] VITALS: BP 125/78
--- NOTE | 2018-06-22 12:06 | NUR ---
PT C/O PAIN TO ABDOMEN. RATES PAIN 8/10, REQUESTS MEDICATION. DILAUDID 1 MG GIVEN AT THIS TIME. WILL MONITOR FOR EFFECTIVENESS. PT CURRENTLY LYING IN BED, ALL SAFETY MEASURES IN PLACE. IV FLUIDS INFUSING. CALL LIGHT IN REACH.
[2018-06-22 12:10] VITALS: BP 140/78
--- NOTE | 2018-06-22 12:15 | NUR ---
Brand Sales Consultant in to talk to patient. Patient states lives at HOME with ALONE. There are 3 steps in the home. Physician: [facility] Pharmacy: [facility] health services: NONE Patient's level of ADLs: INDEPENDENT Patient has working utilities: YES DME: NONE Follow-up physician's appointment after d/c: WILL BE MADE BY HOSPITALIST NURSE DIRECTOR ON DISCHARGE Does patient want to access PORTAL?: NO Discharge plan PT LIVES AT HOME ALONE AND IS INDEPENDENT IN CARE. DENIES ANY NEEDS ON DISCHARGE. WILL CONTINUE TO FOLLOW. STATES HIS GIRLFRIEND WILL TAKE HIM HOME.. PATO COPELAND
--- NOTE | 2018-06-22 12:24 | NUR ---
PHYSICIAN NOTIFIED THAT PT APPEARS TO BE HALLUCINATING AND CONTINUES TO HAVE TREMORS. AWAITING NEW ORDERS AT THIS TIME.
--- NOTE | 2018-06-22 12:48 | NUR ---
PHYSICIAN NOTIFIED THAT PT STATES THAT IF HE IS CHANGING ROOMS TO ICCU, THAT HE IS GOING TO LEAVE AGAINST MEDICAL ADVICE. PHYSICIAN STATES THAT HE WILL GET BACK WITH NURSE REGARDING THE PLAN.
--- NOTE | 2018-06-22 14:53 | NUR ---
PT SLEEPING IN ROOM AT THIS TIME. NO S/S OF DISTRESS NOTED.
--- NOTE | 2018-06-22 17:56 | NUR ---
DILAUDID 1 MG GIVEN FOR C/O ABD PAIN.11/18.ATIVAN 1 MG GIVEN FOR C/O ANXIETY. AND DAUGHTER AT BEDSIDE.FINE TREMORS NOTED.UPDATED HER ON PLAN OF CARE AND DISCUSSED EARLIER REFUSAL FOR TRANSFER TO ICU. PT APPEARS ORIENTED X3 AT THIS TIME. ENCOURAGED TO ALLOW PT TO REST AND DECREASE STIMULI.PT FAMILY ORDERED DINNER AT THIS TIME.
--- NOTE | 2018-06-22 20:30 | NUR ---
PT SIGNIFICANT OTHER CALLED OUT AND STATED "WE NEED THE NURSE RIGHT NOW!". I ENTERED ROOM TO FIND PT STAGGERING AND MUMBLING "I'M LEAVING NOW". WAS VISIBLY UPSET BUT I DIDN'T HEAR WHAT TRANSPIRED PRIOR TO ENTERING ROOM. I NOTED THE PT WAS TREMBLING AND TELLING HER SHE "WAS MAKING IT WORSE". AT THIS TIME I ASKED MY PA'S TO LEAVE THE THE ROOM AND THEN POLITELY ASKED THE THE IF SHE COULD PLEASE LEAVE.THAT I NEEDED TO DECREASE THE STIMULI WHILE I MEDICATED THE PT.AT THIS TIME I MEDICATED THE PT AT BEDSIDE WITH 1MG IV ATIVAN.THE AND DAUGHTER TOLD HIM GOODBYE AND LEFT. I ASKED NADINE FREIRE TO NOTIFY NIGHTSOHFT RESIDENT, DR GARVIN.
--- NOTE | 2018-06-22 20:45 | NUR ---
ATIVAN 1 MG GIVEN AT BEDSIDE. PT STILL REFUSING TO SIT OR GET BACK IN BED.PT INCOHERENT AND DISORIENTED. STUMBLING.CONTINUED TO STAY AT BEDSIDE WITH PT D/T UNSTEADINESS. NADINE MCKEONNEUROPSYCHIATRIST AT BEDSIDE. PT AT NO TIME VIOLENT OR BELLIGERENT. ATTEMPTING TO PULL IMAGINARY CIGARRETTES FROM BOX OF CANDY. LINDA WAS FINALLY ABLE TO COERCE PT INTO WHEELCHAIR. CATALINA SINGLETON RN NURSING FARM MACHINERY ASSEMBLER NOTIFIED AT THIS TIME THAT I WAS UNABLE TO LEAVE THE ROOM OR LEAVE THIS PT UNATTENDED. PT WAS ACTIVELY WITHDRAWING FROM ALCHOL AND WAS COMPLETELY DISORIENTED AND POSED A SAFETY RISK TO HIMSELF.PT WAS TRANSFERRED TO ROOM 509 NEAR THE NURSES STATION.
--- NOTE | 2018-06-22 21:00 | NUR ---
ATIVAN 1 MG GIVEN PER Q15 MIN ORDER. PT NOW SITTING IN WHEELCHAIR AT BEDSIDE REFUSING TO GET INTO BED.LINDA RN AND MYSELF WITH PT AT BEDSIDE.PT DROWSY AND MUMBLING INCOHERENTLY STILL.DR GARVIN ROUNDED AND ORDERS RECIEVED.
--- NOTE | 2018-06-22 21:26 | NUR ---
FINALLY ABLE TO GET PT INTO BED. STILL MUBLING.ATTEMPTING TO CALM PT SO PT COULD TRANSFER TO ICU PT REFUSING TO COOPERATE AT THIS TIME. NOTIFIED ANNEALING OVEN OPERATOR.
--- NOTE | 2018-06-22 21:52 | NUR ---
PT JUMPED UP FRIOM BED OVER RAILS. STEADY PT AT BEDSIDE AND ATTEMPTED TO GET HIM BACK INTO BED. STILL DISORIENTED. PT HOWEVER REQUESTING TO GO TO RESTROOM. ASSISTED HIM TO RESTROOM AND STOOD BY. PT VOIDED AND RETURNED TO BED. BED ALARM INTACT AND NADINE MCKEON AT BEDSIDE.
--- NOTE | 2018-06-22 22:16 | NUR ---
ATIVAN 1 MG SCHEDUILED GIVEN AT THIS TIME PRIOR TO TRANSFERRING PT TO ICU BED 1.PT ATTEMPTING TO CRAWL FROM BED.
--- NOTE | 2018-06-22 22:25 | NUR ---
PT RECEIVED VIA BED FROM [facility]. PT SLEEPING. ALL OF HIS BELONGINGS WERE PLACED IN SHOSHANA'S OFFICE BY SECURITY UPON TRANSFER. VS TAKEN. PT SLEEPING. BED EXIT ALARM ON. MANUAL BP TAKEN AND RECORDED.
[2018-06-22 22:30] VITALS: BP 160/90
--- NOTE | 2018-06-22 22:46 | NUR ---
PT WAS COMPLETELY DRESSED. CHANGED INTO HOSPITAL GOWN. TWO PILLS FOUND IN PLASTIC WRAPPER WAS LABELED AND SENT TO PHARMACY FOR IDENTIFICATION. THE PHARMACIST WAS IDENTIFIED THEM [facility]CO AND [facility].
--- NOTE | 2018-06-22 23:30 | NUR ---
PT TEMP 100.4 TYMPANIC, NOTIFIED RESIDENT COVERING THIS EVENING (NO TYLENOL ON APR) ORDERED TYLENOL SUPP, PT TOLERATED WELL WILL REASSESS TEMP
[2018-06-23] VITALS (8 sets, daily range): BP systolic 117–175; BP diastolic 83–113
--- NOTE | 2018-06-23 | NUR ---
PT INCONT OF URINE PREVIOUSLY, FULL BED CHANGE. AT THIS TIME RN TO ASSIST PT TO USE URINAL. URINE DRUG OBTAINED AND SENT TO LAB. 450 OUTPUT THIS TIME AND INCONT PREVIOUSLY
--- NOTE | 2018-06-23 00:50 | NUR ---
PT MEDICATED WITH IV ATIVAN RELATED TO RESTLESSNESS AND AGGITATION. PT NEEDS FREQUENT REDIRECTION AND IS A FALL RISK. VERY UNSTEADY AND ATTEMPTING TO GET OUT OF BED. RN 1:1 AND IS WITH PT AT ALL TIMES FOR MONITORING.
[2018-06-23 01:06] LABS: URINE AMPHETAMINES < 1000 (1000ng/ml); URINE BARBITURATES < 200 (200ng/ml); URINE BENZODIAZEPINES < 200 (200ng/ml); URINE CANNABINOIDS (THC) < 50 (50ng/ml); URINE COCAINE < 300 (300ng/ml); URINE METHADONE < 300 (300ng/ml); URINE OPIATES < 300 (300ng/ml)
[2018-06-23 01:07] LABS: URINE PHENCYCLIDINE < 25 (25ng/ml)
--- NOTE | 2018-06-23 01:28 | NUR ---
PT INCONT OF URINE X2 THIS SHIFT. FULL BED CHANGE AN PT CLEANED UP AT THIS TIME. UP UNTIL THIS POINT PT WAS RESTING COMFORTABLY, IV ATIVAN EFFECTIVE
--- NOTE | 2018-06-23 02:30 | NUR ---
PT AWAKENS DISORIENTED ANY COMBATIVE, PT MAKING JESTURES IF TO PUNCH STAFF. STAFF NOT WITH IN STRIKING DISTANCE AT THE TIME
--- NOTE | 2018-06-23 02:31 | NUR ---
PT. INCONTINENT OF LARGE AMT OF URINE. SWINGING FISTS AT STAFF. PIPELINE SUPERINTENDENT DIVISION AND DR. GARVIN NOTIFIED OF PATIENTS SAFETY RISK WELL STAFF AT RISK. NO 1:1 SITTER AVAILABLE PER PIPELINE SUPERINTENDENT DIVISION ALTHOUGH ORDERED BY PHYSICIANS. THIEN SANTOS RN
--- NOTE | 2018-06-23 03:31 | NUR ---
ATIVAN GIVEN ORDERED FOR RESTLESSNESS.
--- NOTE | 2018-06-23 04:00 | NUR ---
ATIVAN GIVEN AGAIN FOR AGGITATION. PT. MUMBLING AND THROWING LEGS OVER SIDERAILS, PULLING AT RESTRAINTS. VERY CONFUSED. PRIOR ATIVAN DOSE EFFECTIVE FOR SHORT PERIOD. THIEN SANTOS RN
[2018-06-23 05:42] LABS: INTERNATIONAL NORM RATIO 1.5 (2.0-3.5)
[2018-06-23 05:52] LABS: ALBUMIN 2.5 gm/dl (3.1-4.5); BUN 5 mg/dl (7-24); CHLORIDE 99 mmol/L (98-107); CREATININE 0.36 mg/dL (0.70-1.30); LIPASE 545 U/L (73-393); POTASSIUM 3.7 mmol/L (3.5-5.1); SGOT/AST 120 IU/L (3-35); SGPT/ALT 43 U/L (12-78); SODIUM 135 mmol/L (136-145)
[2018-06-23 05:53] LABS: ALKALINE PHOSPHATASE 104 U/L (45-117); TOTAL PROTEIN 6.1 gm/dL (6.4-8.2)
[2018-06-23 06:20] LABS: HEMATOCRIT 31.7 % (42.0-52.0); HEMOGLOBIN 10.6 g/dl (14.0-18.0); MEAN CELL VOLUME 110.8 fl (80.0-94.0); MEAN CORPUSCULAR HGB 37.1 pg (27.0-31.0); MEAN CORPUSCULAR HGB CONC 33.4 g/dl (33.0-37.0); MEAN PLATELET VOLUME 10.8 fl (9.6-12.3); PLATELET COUNT AUTOMATED 147 10*3/uL (130-400); RED BLOOD COUNT 2.86 10*6/uL (4.50-5.90); RED CELL DISTRI WIDTH 13.8 % (0-14.5); WHITE BLOOD COUNT 7.8 10*3/uL (4.8-10.8)
--- NOTE | 2018-06-23 07:00 | NUR ---
Q15 MINUTE ATIVAN GIVEN FOR AGITATION AT THIS TIME. PATIENT KICKING LEGS AND THRASHING IN BED. PATIENT LOUDLY SWEARING AND HITTING SIDE RAILS. WITHIN SIGHT OF RN. RN WILL CONTINUE TO MONITOR
--- NOTE | 2018-06-23 07:23 | NUR ---
PATIENT MEDICATED WITH 1MG ATIVAN PER DRS ORDERS FOR CONTINUED AGITATION. PATIENT CONTINUES TO YELL OUT, SWINGING LEGS OVER THE SIDERAILS AND KICKING LEGS AROUND. WITHIN SIGHT OF THIS RN, RN WILL CONTINUE TO MONITOR
--- NOTE | 2018-06-23 07:35 | NUR ---
PATIENT RESTING QUIETLY WITH EYES CLOSED,SNORING. NO LONGER KICKING LEGS AROUND BED OR YELLING OUT OR SWEARING. REMAINS WITHIN SIGHT OF RN. RN WILL CONTINUE TO MONITOR
--- NOTE | 2018-06-23 07:41 | NUR ---
Shift chart check completed.
--- NOTE | 2018-06-23 08:00 | NUR ---
PATIENTS BED CHANGED AT THIS TIME. PATIENT INCONTINENT OF BM AND LARGE AMOUNT OF URINE. PATIENT DID NOT TOLERATE WELL, PATIENT YELLING OUT, SWEARING, SWINGING FISTS AT STAFF MEMBERS, AND KICKING LEGS. RN WILL MEDICATE PATIENT PER DRS ORDERS
--- NOTE | 2018-06-23 08:06 | NUR ---
PATIENT AGAIN ACTING AGGRESIVE AFTER BED CHANGED FOR SOILING WITH URINATION AND STOOL. PATIENT PULLING AT WRIST RESTRAINTS AND THREATENING TO HIT STAFF. PATIENT SWINGING CLENCHING HANDS AT RN AND SWEARING, YELLING OUT. PATIENT MEDICATED WITH 1MG ATIVAN PER DRS ORDERS. RN WILL CONTINUE TO MONITOR
[2018-06-23 08:09] LABS: BASOPHILS 2 % (0-1); PLATELET SUFFICIENCY NORMAL (NORMAL); TOTAL CELLS COUNTED 100 #CELLS
--- NOTE | 2018-06-23 08:26 | NUR ---
PATIENT CONTINUES TO ACT AGGRESSIVE DESPITE EARLIER MEDICATION. PATIENT CURENTLY YELLING FOR "EVERYONE TO GET THE F OUT OF HIS HOUSE" AND THAT HE "IS GOING TO PUNCH ALL OF YOU" KICKING LEGS OVER SIDERAILS OF BED, AND HITTING SIDERAILS WITH FISTS. PATIENT GIVEN 1MG ATIVAN PER DRS ORDERS FOR CONTINUED AGITATION RN WILL CONTINUE TO MONITOR
--- NOTE | 2018-06-23 08:34 | NUR ---
DR ROSS NOTIFIED OF MANUAL PRESSURE OF 170/110, ORDERS TO FOLLOW
--- NOTE | 2018-06-23 08:53 | NUR ---
PATIENT ADMINISTERED 2.5MG OF IV LOPRESSOR PER DRS ORDERS FOR ELEVATED BLOOD PRESSURE. RN WILL REOBTAIN BLOOD PRESSURE IN 1 HOUR AND CALL
--- NOTE | 2018-06-23 09:09 | NUR ---
PATIENT ADMINISTERED IV ANTIBIOTICS, SC LOVENOX, AND NICODERM PATCH PER DRS ORDERS. PATIENT CONFUSED AND DOES NOT FOLLOW COMMANDS, SO RN DID NOT ADMINISTER PO MEDICATIONS.
--- NOTE | 2018-06-23 09:17 | NUR ---
1MG ATIVAN PRN GIVEN AT THIS TIME. PATIENT KICKING END OF BED AND YELLING THAT HE "NEEDS TO GET OUT OF HERE" AND THAT HE IS GOING "TO F YOU ALL UP" PULLING AT WRIST RESTRAINTS AND ATTEMPTING TO SIT UP IN BED.
--- NOTE | 2018-06-23 09:29 | NUR ---
SPOKE WITH PATIENTS MOTHER AND UPDATED HER ON PATIENTS CONDITION AND TREATMENT PLAN. SHE STATES THAT SHE WILL BE IN TOMORROW TO SEE PATIENT
--- NOTE | 2018-06-23 09:30 | NUR ---
PATIENT SWINGING LEGS OUT OF BED, ATTEMPTING TO GET OUT OF BED, PATIENT REDIRECTED AND REORIENTATION ATTEMPTED, ATTMEPTS UNSUCCESSFUL. PATIENT SCREAMING FOR "BRENNAN" AND SAYING HE "HAS TO GET OUT OF HERE. RN WILL MEDICATE PATIENT
--- NOTE | 2018-06-23 09:35 | NUR ---
MEDICATED WITH 1MG OF ATIVAN PER DRS ORDERS FOR AGITATION, PATIENT TRYING TO HIT STAFF, SWINGING FISTS AND KICKING LEGS. RN WILL CONTINUE TO MONITOR
--- NOTE | 2018-06-23 09:52 | NUR ---
PATIENT CLEANED UP FOR LARGE SOFT BOWEL MOVEMENT AND LARGE AMOUNT OF URINE. PATIENT CONTINUES TO BE AGGRESSIVE WITH STAFF AND AGITATED DESPITE MEDICATION.
--- NOTE | 2018-06-23 10:05 | NUR ---
ABGS OBTAINED PER DRS ORDERS. PATIENTS ARM HAD TO BE HELD DOWN BY RESPIRATORY THERAPIST WHILE RN OBATINED SAMPLE. PATIENT YELLING AND PULLING AT RESTRAINTS.
[2018-06-23 10:18] LABS: ABG BASE EXCESS 2.9 mmol/L (-2.0-2.0); ABG HCO3 26.7 mmol/l (22-26); ABG O2 SATURATION 97.7 % (95-97); ARTERIAL BLOOD GAS PCO2 40.9 mmHg (35-45); ARTERIAL BLOOD GAS PH 7.433 (7.35-7.45); ARTERIAL BLOOD GAS PO2 83.7 mmHg (80-90)
--- NOTE | 2018-06-23 10:36 | NUR ---
MEDICATED WITH 0.625MG OF VASOTEC PER DRS ORDERS FOR ELEVATED BLOOD PRESSURE. RN WILL MONITOR
--- NOTE | 2018-06-23 11:30 | NUR ---
Patient intubated with 7.5 Azeri endotracheal tube AFTER 1 attempts. Patient sedated with 20MG ETOMIDATE AND 100MG OF SUCCINATE Respiratory therapy at bedside. Crash cart with emergency drugs available. Endotracheal tube inflated with 10ML AIR. Lungs auscultated for equality of breath sounds. Tube secured with Tube tamer at 25cm's. at level of LIP. Patient tolerated procedure . Portable chest X-ray obtained and reviewed for tube placement. Patient connected to ventilator CMV mode, 500 tidal volume, 40% FIO2, 5 PEEP , and pressure support.
--- NOTE | 2018-06-23 11:40 | NUR ---
OG TUBE INSERTED PER DRS ORDERS. VERIFIED PLACEMENT BY AIR BOLUS. WILL CONFIRM WITH CHEST XRAY ALSO VALIDATING THE PLACEMENT OF THE ET TUBE
--- NOTE | 2018-06-23 11:45 | NUR ---
RENE INSERTED PER DRS ORDERS.
--- NOTE | 2018-06-23 13:26 | NUR ---
MEDICATED WITH VERSED PRN FOR AGITATION.
--- NOTE | 2018-06-23 13:37 | NUR ---
SPOKE WITH PATIENTS MOTHER ABOUT PATIENT CONDITION. HER PHONE NUMBER IS [phone]
--- NOTE | 2018-06-23 14:41 | NUR ---
MEDICATED WITH VERSED PER DRS ORDERS FOR AGITATION. AFTER RESPIRATORY OBTAINED ABG RESULTS PATIENT BECAME AGITATED AND WAS PULLING AT WRIST RESTRAINTS AND SHAKING HEAD BACK AND FORTH. RN WILL MONITOR FOR EFFECTIVENESS
[2018-06-23 14:42] LABS: ABG HCO3 26.9 mmol/l (22-26); ABG O2 SATURATION 98.1 % (95-97); ARTERIAL BLOOD GAS PCO2 40.8 mmHg (35-45); ARTERIAL BLOOD GAS PH 7.435 (7.35-7.45); ARTERIAL BLOOD GAS PO2 89.5 mmHg (80-90)
--- NOTE | 2018-06-23 16:02 | NUR ---
DR BELTRÁN CALLED REGARDING PATIENT CONSULT. NO NEW ORDERS
--- NOTE | 2018-06-23 20:29 | NUR ---
1930 REPOSITIONED ON R SIDE. HOB ELEVATED. SIDE RAILS UP X'S 2. NPO. ORAL AND EYE CARE DONE. MVI CONT TO INFUSE. DIPRIVAN GTT MAINTAINED FOR SEDATION. WRIST RESTRTAINTS INTACT BILATERALLY. CIRCULATION ADEQUATE. RENE PATENT AND DRAINING ORANGE TINGED URINE. ET SECURE TO VENT. SUCTIONED ORALLY AND VIA ET. SEE INTERVENTION SCREEN. PULSE OX 100% ON 40% FIO2 VIA VENT.
--- NOTE | 2018-06-23 22:17 | NUR ---
OGT INTACT. TF CONT AT 20CC/HR. IV FLUIDS INFUSING WELL. MVI INFUSED.
[2018-06-24] VITALS (14 sets, daily range): BP systolic 135–166; BP diastolic 97–116
--- NOTE | 2018-06-24 00:12 | NUR ---
COMPLETE BED BATH GIVEN AND LINENS CHANGED. REPOSITIONED ON LEFT SIDE. ORAL AND EYE CARE DONE. ABD DISTENDED. TF MAINTAINED. COLOR APPEARS TO JAUNDICED. VERSED GIVEN AT 2310 AND EFFECTIVE FOR AGITATION.
--- NOTE | 2018-06-24 03:23 | NUR ---
VERSED GIVEN AT 0305 FOR RESTLESSNESS. EFFECTIVE.
--- NOTE | 2018-06-24 05:39 | NUR ---
DR. GARVIN MADE AWARE OF PT CONT ELEVATED HR AND BP, AFTER VERSED AND IV ATIVAN.
[2018-06-24 05:51] LABS: ALBUMIN 2.5 gm/dl (3.1-4.5); BUN 6 mg/dl (7-24); CHLORIDE 96 mmol/L (98-107); CREATININE 0.42 mg/dL (0.70-1.30); PHOSPHOROUS 3.7 mg/dL (2.5-4.9); POTASSIUM 3.3 mmol/L (3.5-5.1); SGOT/AST 89 IU/L (3-35); SGPT/ALT 37 U/L (12-78); SODIUM 133 mmol/L (136-145)
[2018-06-24 05:52] LABS: ALKALINE PHOSPHATASE 106 U/L (45-117)
--- NOTE | 2018-06-24 06:00 | NUR ---
0550 ONE TIME DOSE OF LOPRESSOR 2.5MG IV GIVEN ORDERED. WILL CONT TO MONITOR.
--- NOTE | 2018-06-24 06:08 | NUR ---
REMAINS ADEQUATELY SEDATED ON DIPRIVAN GTT. ET SECURE TO VENT. PULSE OX 100%. RENE REMAINS PATENT AND DRAINING BLOOD TINGED URINE. HR DOWN TO 108 FROM 127 AFTER IV LOPRESSOR. BP REMAINS ELEVATTED. WILL CONT TO MONITOR. CONDITION GUARDED.
[2018-06-24 06:10] LABS: HEMATOCRIT 34.1 % (42.0-52.0); HEMOGLOBIN 11.9 g/dl (14.0-18.0); MEAN CELL VOLUME 109.3 fl (80.0-94.0); MEAN CORPUSCULAR HGB 38.1 pg (27.0-31.0); MEAN CORPUSCULAR HGB CONC 34.9 g/dl (33.0-37.0); MEAN PLATELET VOLUME 11.1 fl (9.6-12.3); PLATELET COUNT AUTOMATED 164 10*3/uL (130-400); RED BLOOD COUNT 3.12 10*6/uL (4.50-5.90); RED CELL DISTRI WIDTH 13.8 % (0-14.5); WHITE BLOOD COUNT 12.9 10*3/uL (4.8-10.8)
[2018-06-24 06:59] LABS: BASOPHILS 1 % (0-1); PLATELET SUFFICIENCY NORMAL (NORMAL); TOTAL CELLS COUNTED 100 #CELLS
[2018-06-24 07:45] LABS: ABG BASE EXCESS 2.6 mmol/L (-2.0-2.0); ABG O2 SATURATION 95.9 % (95-97); ARTERIAL BLOOD GAS PCO2 32.9 mmHg (35-45); ARTERIAL BLOOD GAS PH 7.495 (7.35-7.45); ARTERIAL BLOOD GAS PO2 80.3 mmHg (80-90)
--- NOTE | 2018-06-24 07:55 | NUR ---
TYLENOL SUPPOSITORY GIVEN FOR ELEVATED TEMP. RN WILL MONITOR
--- NOTE | 2018-06-24 08:50 | NUR ---
LOPRESSOR IV GIVEN PER DRS ORDERS FOR HYPERTENSION AND ELEVATED HEARTRATE. VERSED ALSO GIVEN PER DRS ORDERS FOR RESTESSNESS AND AGITATION. PATIENT FIDGETING AROUND IN THE BED AND KICKING LEGS. RN WILL MONITOR FOR EFFECTIVENESS OF BOTH MEDICATIONS
--- NOTE | 2018-06-24 10:07 | NUR ---
PATIENT MEDICATED WITH LOPRESSOR PER DRS ORDERS DUE TO ELEVATED BLOOD PRESSURE AND INCREASED HEARTRATE. RN WILL CONTINUE TO MONITOR
--- NOTE | 2018-06-24 10:15 | NUR ---
VERSED GIVEN FOR AGITATION AND RESTLESSNESS.RN WILL CONTINUE TO SALLIE
--- NOTE | 2018-06-24 11:03 | NUR ---
UNABLE TO TALK WITH PT. PT ON VENT AT THIS TIME.
--- NOTE | 2018-06-24 12:25 | NUR ---
TYLENOL GIVEN FOR ELEVATED TEMP
--- NOTE | 2018-06-24 14:45 | NUR ---
SPOKE WITH PATIENTS MOTHER AND SIGNIFICANT OTHER VIA PHONE AND UPDATED THEM ON THE PATIENTS CONDITION TODAY AND PLANS FOR TREATMENT. CALL BACK NUMBER PROVIDED FOR JANIS
--- NOTE | 2018-06-24 17:52 | NUR ---
PATIENT MEDICATED WITH VERSED PER DRS ORDERS FOR RESLTESSNESS AND AGITATION.
--- NOTE | 2018-06-24 18:35 | NUR ---
RESPIRATORY CALLED REGARDING PATIENTS PULSE OX IN THE LOWER 90'S, STATE THEY WILL BE UP SOON THEY CAN
--- NOTE | 2018-06-24 19:50 | NUR ---
MEDICATED WITH VERSED PER PRN ORDER FOR SEDATION.
--- NOTE | 2018-06-24 20:00 | NUR ---
PT RESTING IN BED WTIH EYES CLOSED. ENDOTUBE PATENT, TIES SECURE, VENT SETTINGS VERIFIED. OGT PATENT AND TF NFUSING ORDERED AND CATHY WELL, NO RESIDUAL NOTED. IV'S PATENT AND IVF'S INFUSING ORDERED. RENE PATENT FOR DARK ELISABETH URINE. NO ACUTE DISTRESS NOTED.
--- NOTE | 2018-06-24 20:00 | NUR ---
Pt had to be increased to 40% FiO2 from 30%. Pt was in the high 80's-low 90's. Pt was suctioned for a small amt of creamy secretions. Nurse aware and will continue to monitor and wean FiO2 back down.
--- NOTE | 2018-06-24 23:00 | NUR ---
MEDICATED WITH TYLENO SUPPOSITORY PER PRN ORDER FOR T 100.9(R).
[2018-06-25] VITALS (12 sets, daily range): BP systolic 126–162; BP diastolic 86–105
--- NOTE | 2018-06-25 | NUR ---
MEDICATED WITH VERSED PER PRN ORDER FOR SEDATION.
--- NOTE | 2018-06-25 01:30 | NUR ---
MEDICATED WITH ATIVAN AND VERSED PER PRN ORDERS FOR SEDATION.
--- NOTE | 2018-06-25 02:00 | NUR ---
PT T 100.6(R). DR GARVIN NOTIFIED. NEW ORDER FOR MOTRIN 800MG PO X1 NOW.
--- NOTE | 2018-06-25 03:00 | NUR ---
MEDICATED WITH ATIVAN AND VERSED FOR SEDATION.
--- NOTE | 2018-06-25 05:30 | NUR ---
MEDICATED WITH VERSED PER PRN ORDER FOR SEDATION.
--- NOTE | 2018-06-25 06:00 | NUR ---
ATIVAN AND VERSED HAVE BEEN EFFECTIVE THROUGHOUT SHIFT.
[2018-06-25 06:17] LABS: HEMATOCRIT 33.3 % (42.0-52.0); HEMOGLOBIN 11.4 g/dl (14.0-18.0); MEAN CELL VOLUME 109.2 fl (80.0-94.0); MEAN CORPUSCULAR HGB 37.4 pg (27.0-31.0); MEAN CORPUSCULAR HGB CONC 34.2 g/dl (33.0-37.0); MEAN PLATELET VOLUME 10.8 fl (9.6-12.3); PLATELET COUNT AUTOMATED 151 10*3/uL (130-400); RED BLOOD COUNT 3.05 10*6/uL (4.50-5.90); RED CELL DISTRI WIDTH 14.2 % (0-14.5)
[2018-06-25 06:35] LABS: ALBUMIN 2.3 gm/dl (3.1-4.5); ALKALINE PHOSPHATASE 111 U/L (45-117); BUN 10 mg/dl (7-24); CHLORIDE 99 mmol/L (98-107); CREATININE 0.47 mg/dL (0.70-1.30); PHOSPHOROUS 4.3 mg/dL (2.5-4.9); POTASSIUM 3.9 mmol/L (3.5-5.1); SGOT/AST 88 IU/L (3-35); SGPT/ALT 35 U/L (12-78); SODIUM 135 mmol/L (136-145); TOTAL PROTEIN 5.7 gm/dL (6.4-8.2)
[2018-06-25 07:08] LABS: ABG BASE EXCESS 2.5 mmol/L (-2.0-2.0); ABG O2 SATURATION 91.7 % (95-97); ARTERIAL BLOOD GAS PCO2 37.8 mmHg (35-45); ARTERIAL BLOOD GAS PH 7.451 (7.35-7.45); ARTERIAL BLOOD GAS PO2 65.1 mmHg (80-90)
[2018-06-25 07:56] LABS: BASOPHILS 2 % (0-1); PLATELET SUFFICIENCY NORMAL (NORMAL); TOTAL CELLS COUNTED 100 #CELLS
--- NOTE | 2018-06-25 10:00 | NUR ---
SEDATION OFF AT THIS TIME TO CHECK MENTATION.
--- NOTE | 2018-06-25 10:50 | NUR ---
PATIENT WILL OPEN EYES BUT DOES NOT FOLLOW COMMANDS. NOTIFIED. STATED TO TURN SEDATION BACK ON AT A LOW DOSE.
--- NOTE | 2018-06-25 12:10 | NUR ---
PATIENT TACHYPNEIC AND TACHYCARDIC. MEDICATED WITH ATIVAN 1MG IV AND VERSED 5MG IV PER PRN ORDERS. WILL CONTINUE TO MONITOR.
--- NOTE | 2018-06-25 12:59 | NUR ---
PATIENT REMAINS TACHYPNEIC AND TACHYCARDIC. MEDICATED WITH ATIVAN 1MG IV PER PRN ORDER. WILL CONTINUE TO MONITOR.
--- NOTE | 2018-06-25 15:56 | NUR ---
TEMPERATURE 101.9/T MEDICATED WITH TYLENOL PER PRN ORDER. WILL CONTINUE TO MONITOR.
--- NOTE | 2018-06-25 17:00 | NUR ---
PATIENT TACHYPNEIC AND TACHYCARDIC. MEDICATED WITH VERSED AND ATIVAN PER PRN ORDERS.
--- NOTE | 2018-06-25 18:35 | NUR ---
CALLED REGARDING TEMPERATURE REMAINS 101.2. PATIENT HEART RATE 120'S. RR 30'S. INFORMED OF PRN MEDICATIONS ALREADY GIVEN. NEW ORDER RECEIVED FOR ONE TIME DOSE OF MOTRIN.
--- NOTE | 2018-06-25 20:01 | NUR ---
IBUPROFEN APPEARS TO BE EFFECTIVE. HR DOWN TO 110'S, RR 23/MIN. PULSE OX 97%. TEMPERATURE DOWN TO 99.5.
[2018-06-26] VITALS (12 sets, daily range): BP systolic 131–170; BP diastolic 76–108
--- NOTE | 2018-06-26 04:12 | NUR ---
GIVEN PRN ATIVAN FOR ANXIOUS/AGITATION WHEN SUCTIONING
--- NOTE | 2018-06-26 04:58 | NUR ---
CALLED DOCTOR JAMESON TO INFORM HER OF PATIENTS BPS 160'S/100'S AFTER BEING GIVEN ATIVAN, VERSED, AND PATIENT CARDIZEM. SHE SAID SHE WILL LOOK INTO IT AND PUT SOMETHING IN.
[2018-06-26 05:51] LABS: HEMATOCRIT 34.6 % (42.0-52.0); HEMOGLOBIN 12.1 g/dl (14.0-18.0); MEAN CELL VOLUME 110.2 fl (80.0-94.0); MEAN CORPUSCULAR HGB 38.5 pg (27.0-31.0); MEAN PLATELET VOLUME 11.2 fl (9.6-12.3); PLATELET COUNT AUTOMATED 145 10*3/uL (130-400); RED BLOOD COUNT 3.14 10*6/uL (4.50-5.90); WHITE BLOOD COUNT 11.3 10*3/uL (4.8-10.8)
[2018-06-26 06:17] LABS: BASOPHILS 1 % (0-1); PLATELET SUFFICIENCY NORMAL (NORMAL); TOTAL CELLS COUNTED 100 #CELLS
[2018-06-26 06:39] LABS: ALBUMIN 2.4 gm/dl (3.1-4.5); ALKALINE PHOSPHATASE 105 U/L (45-117); BUN 11 mg/dl (7-24); CHLORIDE 98 mmol/L (98-107); PHOSPHOROUS 3.8 mg/dL (2.5-4.9); POTASSIUM 4.2 mmol/L (3.5-5.1); SGOT/AST 72 IU/L (3-35); SGPT/ALT 37 U/L (12-78); SODIUM 135 mmol/L (136-145); TOTAL PROTEIN 6.1 gm/dL (6.4-8.2)
[2018-06-26 08:08] LABS: ABG BASE EXCESS 2.2 mmol/L (-2.0-2.0); ABG HCO3 25.1 mmol/l (22-26); ARTERIAL BLOOD GAS PCO2 36.4 mmHg (35-45); ARTERIAL BLOOD GAS PH 7.458 (7.35-7.45); ARTERIAL BLOOD GAS PO2 67.7 mmHg (80-90)
[2018-06-27] VITALS (10 sets, daily range): BP systolic 140–167; BP diastolic 88–105
[2018-06-27 05:16] LABS: HEMATOCRIT 32.1 % (42.0-52.0); MEAN CELL VOLUME 109.9 fl (80.0-94.0); MEAN CORPUSCULAR HGB 37.7 pg (27.0-31.0); MEAN CORPUSCULAR HGB CONC 34.3 g/dl (33.0-37.0); MEAN PLATELET VOLUME 11.1 fl (9.6-12.3); PLATELET COUNT AUTOMATED 171 10*3/uL (130-400); RED BLOOD COUNT 2.92 10*6/uL (4.50-5.90); RED CELL DISTRI WIDTH 14.1 % (0-14.5); WHITE BLOOD COUNT 11.2 10*3/uL (4.8-10.8)
[2018-06-27 05:55] LABS: TOTAL CELLS COUNTED 100 #CELLS
[2018-06-27 05:56] LABS: PLATELET SUFFICIENCY NORMAL (NORMAL); POLYCHROMASIA SLIGHT
[2018-06-27 05:59] LABS: ALBUMIN 2.4 gm/dl (3.1-4.5); ALKALINE PHOSPHATASE 100 U/L (45-117); BUN 13 mg/dl (7-24); CHLORIDE 98 mmol/L (98-107); CREATININE 0.42 mg/dL (0.70-1.30); LIPASE 184 U/L (73-393); PHOSPHOROUS 3.6 mg/dL (2.5-4.9); POTASSIUM 4.3 mmol/L (3.5-5.1); SGOT/AST 62 IU/L (3-35); SGPT/ALT 36 U/L (12-78); SODIUM 136 mmol/L (136-145); TOTAL PROTEIN 6.2 gm/dL (6.4-8.2)
[2018-06-27 07:03] LABS: ACT PARTIAL THROMBO TIME 25.9 SECONDS (20.0-32.1); INTERNATIONAL NORM RATIO 1.2 (2.0-3.5)
[2018-06-27 08:20] LABS: ABG BASE EXCESS 4.2 mmol/L (-2.0-2.0); ABG HCO3 28.3 mmol/l (22-26); ABG O2 SATURATION 96.8 % (95-97); ARTERIAL BLOOD GAS PH 7.436 (7.35-7.45); ARTERIAL BLOOD GAS PO2 83.1 mmHg (80-90)
--- NOTE | 2018-06-27 10:19 | NUR ---
PATIENT RESTLESS. MEDICATED WITH ATIVAN PER PRN ORDER. WILL CONTINUE TO MONITOR.
--- NOTE | 2018-06-27 14:00 | NUR ---
SEDTION TURNED OFF AT THIS TIME.
--- NOTE | 2018-06-27 15:50 | NUR ---
PATIENT OFF SEDATION. VERY AGITATED AT THIS TIME. MEDICATED WITH ATIVAN PER PRN ORDER. WILL CONTINUE TO MONITOR.
--- NOTE | 2018-06-27 15:55 | NUR ---
1550 MODE CHANGED TO CPAP OF 5 PS 10 CM FROM AC.TOLERATING WELL AT THIS POINT
[2018-06-27 17:48] LABS: ABG BASE EXCESS 5.1 mmol/L (-2.0-2.0); ABG HCO3 28.9 mmol/l (22-26); ARTERIAL BLOOD GAS PCO2 40.9 mmHg (35-45); ARTERIAL BLOOD GAS PH 7.464 (7.35-7.45)
--- NOTE | 2018-06-27 17:50 | NUR ---
CALLED REGARDING ABG RESULTS. NEW ORDER RECEIVED TO EXTUBATE PATIENT.
--- NOTE | 2018-06-27 18:00 | NUR ---
1800: PT EXTUBATED AND PLACED ON 5 L NC. TOLERATED WELL. RESPS EASY AND UNLBAORED. PT COMMUNICATING EFFECTIVELY. VENT ON S/B. HR 104 RR 20 SPO2 98%
--- NOTE | 2018-06-27 21:01 | NUR ---
PATIENT GIVEN ATIVAN FOR AGITATION PATIENT TRYING TO CLIMB OUT OF BED. SAYING HE IS JUST GOING DOWN STAIRS. WHEN TOLD HE COULD NOT LEAVE BECUASE HE WAS WEAK HE SAID YES I CAN.
--- NOTE | 2018-06-27 22:22 | NUR ---
PATIENT YELLING AND SWEARING AT THE NURSEING STAFF AND ASKING FOR A KNIFE WHEN ASKED WHAT HE WANTS A KNIFE FOR HE MUMMBLES WORDS I CONNNOT UNDERSTAND THEN STARTS TRYING TO GET OUT OF BED ATIVAN HAS NOT BEEN EFFECTIVE OF NOW.
--- NOTE | 2018-06-27 23:26 | NUR ---
PATIENT GIVEN ATIVAN AND IS STILL YELLING OUT CALLED DOCTOR HARSHAW DUE TO PATIENTS BP OF 183/111 ORDERS GIVEN CURENTLY.
[2018-06-28] VITALS: BP 183/111
[2018-06-28 03:59] VITALS: BP 179/106
[2018-06-28 05:43] LABS: ALBUMIN 2.5 gm/dl (3.1-4.5); ALKALINE PHOSPHATASE 84 U/L (45-117); BUN 12 mg/dl (7-24); CHLORIDE 95 mmol/L (98-107); CREATININE 0.34 mg/dL (0.70-1.30); PHOSPHOROUS 3.1 mg/dL (2.5-4.9); POTASSIUM 3.4 mmol/L (3.5-5.1); SGOT/AST 84 IU/L (3-35); SGPT/ALT 48 U/L (12-78); SODIUM 134 mmol/L (136-145); TOTAL PROTEIN 6.1 gm/dL (6.4-8.2)
[2018-06-28 05:59] LABS: HEMOGLOBIN 11.2 g/dl (14.0-18.0); MEAN CELL VOLUME 108.2 fl (80.0-94.0); MEAN CORPUSCULAR HGB 36.7 pg (27.0-31.0); MEAN CORPUSCULAR HGB CONC 33.9 g/dl (33.0-37.0); MEAN PLATELET VOLUME 11.1 fl (9.6-12.3); PLATELET COUNT AUTOMATED 216 10*3/uL (130-400); RED BLOOD COUNT 3.05 10*6/uL (4.50-5.90); RED CELL DISTRI WIDTH 13.2 % (0-14.5); WHITE BLOOD COUNT 10.3 10*3/uL (4.8-10.8)
--- NOTE | 2018-06-28 06:05 | NUR ---
PATIENT GIVEN CARDIZEM PO PATIENT DRANK WATER BUT DID NOT SWALLOW PILL WHEN I TOLD HIM TO TAKE ANOTHER DRINK HE BEGAN CHEWING UP THE PILL AND YELL AT ME TO LEAVE HIM ALONE PATIENT CHEWED UP HIS PILL AND THEN TOOK ANOTHER DRINK OF WATER. PATIENT HAS NO PROBLEMS SWALLOWING.
[2018-06-28 07:04] LABS: PLATELET SUFFICIENCY NORMAL (NORMAL); TOTAL CELLS COUNTED 100 #CELLS
[2018-06-28 08:00] VITALS: BP 180/100
--- NOTE | 2018-06-28 10:22 | NUR ---
0800 Listless, encouraged to open eyes, re-oriented to place and time, Speech garbled , difficult to understand. Dr. Renee in and orders were recieved. 1000 IV site to JESUS leaking at site. Speech remains garbled but, more understandable. Dr. Davey in. [facility] ordered.
[2018-06-28 12:00] VITALS: BP 188/95
[2018-06-28 16:00] VITALS: BP 150/84
--- NOTE | 2018-06-28 17:00 | NUR ---
Noon cardizem was not given as pt. adamantly refused. Opens eyes to voice. Mostly sleeping.
--- NOTE | 2018-06-28 18:12 | NUR ---
Awakened for meds and dinner. re-oriented to time and date.
[2018-06-28 20:00] VITALS: BP 120/65
--- NOTE | 2018-06-28 20:19 | NUR ---
1930 RESTING IN BED WITH EYES CLOSED. APPEARS TO BE SLEEPING. HOB ELEVATED. SIDE RAILS UP X'S 2. CALL LIGHT IN REACH. OPENS EYES TO CARE. ALERT AND ORIENTED. HEP LOCK'S INTACT X'S 3. RENE PATENT AND DRAINING ANBER URINE. NO DISTRESS NOTED. AFEBRILE. PULSE OX 92% ON RA.
[2018-06-29] VITALS: BP 168/82
--- NOTE | 2018-06-29 00:06 | NUR ---
ROUTINE HALDOL GIVEN ORDERED. TOOK PO MED WITH PUDDING. TOLERATED WELL. REMAINS COOPERATIVE. RESTING IN BED WITHOUT C/O'S.
[2018-06-29 04:00] VITALS: BP 175/85
--- NOTE | 2018-06-29 04:11 | NUR ---
0300 UP TO BSC WITH 1 ASSIST. HAD BM LIQUID STOOL. TOLERATED WELL. 0400 RESTING IN BED WATCHING TV. ALERT AND COOPERATIVE. RENE PATENT. GIVEN GINGERALE PER REQUEST. ROUTINE HALDOL IV GIVEN ORDERED.
[2018-06-29 04:57] LABS: BASO % 0.1 % (0.0-1.0); HEMATOCRIT 33.1 % (42.0-52.0); HEMOGLOBIN 11.7 g/dl (14.0-18.0); LYMPH % 10.6 % (27.0-41.0); MEAN CELL VOLUME 106.8 fl (80.0-94.0); MEAN CORPUSCULAR HGB 37.7 pg (27.0-31.0); MEAN CORPUSCULAR HGB CONC 35.3 g/dl (33.0-37.0); MEAN PLATELET VOLUME 10.6 fl (9.6-12.3); MONO # 0.7 10*3/uL (0.1-1.0); MONO % 7.4 % (3.0-9.0); NEUT # 7.3 10*3/uL (2.3-7.9); NEUT % 81.2 % (47.0-73.0); PLATELET COUNT AUTOMATED 220 10*3/uL (130-400); RED CELL DISTRI WIDTH 12.8 % (0-14.5); WHITE BLOOD COUNT 8.9 10*3/uL (4.8-10.8)
--- NOTE | 2018-06-29 06:16 | NUR ---
RESTING IN BED WITH EYES CLOSED. APPEARS TO BE SLEEPING. CONDITION GUARDED.
[2018-06-29 06:27] LABS: ALBUMIN 2.5 gm/dl (3.1-4.5); ALKALINE PHOSPHATASE 83 U/L (45-117); BUN 11 mg/dl (7-24); CHLORIDE 96 mmol/L (98-107); CREATININE 0.34 mg/dL (0.70-1.30); PHOSPHOROUS 3.4 mg/dL (2.5-4.9); POTASSIUM 3.4 mmol/L (3.5-5.1); SGOT/AST 93 IU/L (3-35); SGPT/ALT 62 U/L (12-78); SODIUM 135 mmol/L (136-145); TOTAL PROTEIN 5.8 gm/dL (6.4-8.2)
[2018-06-29 08:00] VITALS: BP 180/95
--- NOTE | 2018-06-29 10:15 | NUR ---
RENE CATHETER DISCONTINUED.
[2018-06-29 12:00] VITALS: BP 118/75
--- NOTE | 2018-06-29 14:16 | NUR ---
Occupational Therapy evaluation completed in [facility] with full eval to follow. Precautions include impaired balance, coordination, strength and safety in ADLs, moderate complexity level 09748 via chart review, testing and evalaution. Recommend OT per pOC and home with 24 hr supervision/assist and home health OT, SN, PT. Thank you for this referral. Valeria Green OTR/l
--- NOTE | 2018-06-29 14:37 | NUR ---
PHYSICAL THERAPY PT evaluation complete. Patient presents with generalized LE weakness, balance deficits, and unsteady gait. See POC for full evaluation. Recommend home health PT services at discharge. Macarena Aguirre, PT,DPT
[2018-06-29 16:00] VITALS: BP 170/95
--- NOTE | 2018-06-29 19:31 | NUR ---
24 HR CHART CHECK COMPLETE.
[2018-06-29 20:00] VITALS: BP 160/90
[2018-06-30] VITALS: BP 144/88
[2018-06-30 06:30] LABS: BASO % 0.2 % (0.0-1.0); EOS # 0.1 10*3/uL (0.0-0.4); EOS % 0.7 % (1.0-4.0); HEMOGLOBIN 10.8 g/dl (14.0-18.0); LYMPH # 2.3 10*3/uL (1.3-4.4); LYMPH % 20.2 % (27.0-41.0); MEAN CELL VOLUME 107.3 fl (80.0-94.0); MEAN CORPUSCULAR HGB 37.4 pg (27.0-31.0); MEAN CORPUSCULAR HGB CONC 34.8 g/dl (33.0-37.0); MEAN PLATELET VOLUME 9.6 fl (9.6-12.3); MONO # 0.9 10*3/uL (0.1-1.0); MONO % 8.3 % (3.0-9.0); NEUT # 7.8 10*3/uL (2.3-7.9); NEUT % 69.8 % (47.0-73.0); PLATELET COUNT AUTOMATED 229 10*3/uL (130-400); RED BLOOD COUNT 2.89 10*6/uL (4.50-5.90); RED CELL DISTRI WIDTH 12.8 % (0-14.5); WHITE BLOOD COUNT 11.2 10*3/uL (4.8-10.8)
[2018-06-30 07:07] LABS: BUN 6 mg/dl (7-24); CHLORIDE 99 mmol/L (98-107); POTASSIUM 3.4 mmol/L (3.5-5.1); SODIUM 136 mmol/L (136-145)
[2018-06-30 08:00] VITALS: BP 158/102
[2018-06-30 12:00] VITALS: BP 153/99
[2018-06-30 16:00] VITALS: BP 141/98
--- NOTE | 2018-06-30 19:00 | NUR ---
PT IS AWAKE AND RESTING IN BED AT THIS TIME. NO C/O OF DISCOMFORT NOTED. PATIENT STATES THAT HE IS FEELING MUCH BETTER THAN HE HAS AND IS LOOKING FORWARD TO GOING HOME. WILL CONTINUE TO MONITOR.
[2018-06-30 20:00] VITALS: BP 153/97
[2018-07-01] VITALS: BP 137/93
[2018-07-01 06:46] LABS: BUN 4 mg/dl (7-24); CHLORIDE 98 mmol/L (98-107); CREATININE 0.41 mg/dL (0.70-1.30); POTASSIUM 3.4 mmol/L (3.5-5.1); SODIUM 135 mmol/L (136-145)
[2018-07-01 08:00] VITALS: BP 130/78
[2018-07-01] MEDS ORDERED: NATURE'S BLEND F1 MG PO (11:26)
[2018-07-01] MEDS ORDERED: VITAMIN D350000 UNIT PO (11:26)
[2018-07-01] MEDS ORDERED: DILTIAZEM HYDR180 M2 PO (11:26)
[2018-07-01] MEDS ORDERED: PREDNISONE10 MG PO (11:26)
[2018-07-01] MEDS ORDERED: PRINIVIL20 M1 PO (11:26)
[2018-07-01] MEDS ORDERED: NEXIUM40 MG PO (11:26)
[2018-07-01] MEDS ORDERED: DOXYCYCLINE100 M3 PO (11:29)
[2018-07-01] MEDS ORDERED: KLOR-CON M2020 ME1 PO (11:32)
--- NOTE | 2018-07-01 12:51 | NUR ---
Discharge instructions reviewed with patient/family. Patient receptive and verbalizes understanding. Follow-up care arranged. Written instructions given to patient/family. RAMILA DUNN
[2018-08-10] MEDS ORDERED: NEXIUM40 MG PO (03:44)
[2018-08-13] MEDS ORDERED: LOPRESSOR25 MG PO (09:56)
== END 2018-07-01 12:45 | disposition home or self-care (01) | DRG 870 ==
LOC: ED 00:53 → 5E 03:47 → EDHOLD 03:47 → 5E 07:11 → ICCU 06-22 12:44 → 5E 06-22 13:28 → ICCU 06-22 22:39 → 5E 06-29 14:37
PROVIDERS: Emergency Medicine; Internal Medicine; Internal Medicine Critical Care Medicine; Student in an Organized Health Care Education/Training Program; ADMIT Internal Medicine
PROC: 5A1955Z Respiratory Ventilation, Greater than 96 Consecutive Hours (ICD-10-PCS; principal; 2018-06-23)
PROC: 0BH17EZ Insertion of Endotracheal Airway into Trachea, Via Natural or Artificial Opening (ICD-10-PCS; principal; 2018-06-23)
DX: A41.9 Sepsis, unspecified organism (principal); K85.20 Alcohol induced acute pancreatitis without necrosis or infection; J69.0 Pneumonitis due to inhalation of food and vomit; J96.00 Acute respiratory failure, unspecified whether with hypoxia or hypercapnia; E43 Unspecified severe protein-calorie malnutrition; E87.1 Hypo-osmolality and hyponatremia; F10.221 Alcohol dependence with intoxication delirium; F10.231 Alcohol dependence with withdrawal delirium; K86.1 Other chronic pancreatitis; J44.1 Chronic obstructive pulmonary disease with (acute) exacerbation; E87.3 Alkalosis; R44.3 Hallucinations, unspecified; Z68.1 Body mass index [BMI] 19.9 or less, adult; R65.20 Severe sepsis without septic shock; E53.8 Deficiency of other specified B group vitamins; E83.42 Hypomagnesemia; K74.60 Unspecified cirrhosis of liver; E87.6 Hypokalemia; R73.9 Hyperglycemia, unspecified; D53.9 Nutritional anemia, unspecified; K21.9 Gastro-esophageal reflux disease without esophagitis; I10 Essential (primary) hypertension; E83.119 Hemochromatosis, unspecified; F17.210 Nicotine dependence, cigarettes, uncomplicated; Z71.6 Tobacco abuse counseling; Z91.030 Bee allergy status; Z80.8 Family history of malignant neoplasm of other organs or systems; Z79.899 Other long term (current) drug therapy

== ENCOUNTER 2018-07-17 23:19 | Inpatient (IN) | payer SELFPAY ==
[~2018-07-17] VITALS: Ht 182.8 cm; Wt 65.8 kg
--- NOTE | ~2018-07-17 | EKG ---
[place], [place] ELECTROCARDIOGRAM REPORT NAME: ANURADHA MARIA UNIT #: [id number] ROOM: 509 DOCTOR: BRIDEGTTE DRAFT REPORT BIRTHDATE: [address] 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
[~2018-07-17 23:19] MED LIST changes: +DILTIAZEM HYDR180 M2 PO; +DOXYCYCLINE100 M3 PO; +KLOR-CON M2020 ME1 PO; +NATURE'S BLEND F1 MG PO; +PREDNISONE10 MG PO
[2018-07-17 23:25] VITALS: BP 139/71
[2018-07-17 23:53] LABS: BASO # 0.1 10*3/uL (0.0-0.1); BASO % 0.8 % (0.0-1.0); EOS # 0.1 10*3/uL (0.0-0.4); HEMATOCRIT 32.3 % (42.0-52.0); HEMOGLOBIN 11.5 g/dl (14.0-18.0); LYMPH # 3.4 10*3/uL (1.3-4.4); MEAN CELL VOLUME 106.3 fl (80.0-94.0); MEAN CORPUSCULAR HGB 37.8 pg (27.0-31.0); MEAN CORPUSCULAR HGB CONC 35.6 g/dl (33.0-37.0); MEAN PLATELET VOLUME 9.4 fl (9.6-12.3); MONO # 0.8 10*3/uL (0.1-1.0); MONO % 7.7 % (3.0-9.0); NEUT # 5.4 10*3/uL (2.3-7.9); NEUT % 54.9 % (47.0-73.0); PLATELET COUNT AUTOMATED 134 10*3/uL (130-400); RED BLOOD COUNT 3.04 10*6/uL (4.50-5.90); RED CELL DISTRI WIDTH 13.3 % (0-14.5); WHITE BLOOD COUNT 9.8 10*3/uL (4.8-10.8)
[2018-07-18] VITALS (10 sets, daily range): BP systolic 137–184; BP diastolic 71–108
[2018-07-18 00:04] LABS: ACT PARTIAL THROMBO TIME 26.6 SECONDS (20.0-32.1); INTERNATIONAL NORM RATIO 1.1 (2.0-3.5)
[2018-07-18 00:10] LABS: ALBUMIN 3.3 gm/dl (3.1-4.5); ALKALINE PHOSPHATASE 164 U/L (45-117); BUN 5 mg/dl (7-24); CHLORIDE 99 mmol/L (98-107); CREATININE 0.54 mg/dL (0.70-1.30); LIPASE 187 U/L (73-393); POTASSIUM 4.1 mmol/L (3.5-5.1); SGOT/AST 97 IU/L (3-35); SGPT/ALT 46 U/L (12-78); SODIUM 134 mmol/L (136-145); TOTAL PROTEIN 6.8 gm/dL (6.4-8.2)
[2018-07-18 00:11] LABS: TROPONIN I 0.032 ng/ml (<0.045)
[2018-07-18] MEDS ORDERED: PRINIVIL20 M1 PO (02:10)
[2018-07-18 04:33] LABS: BILIRUBIN NEGATIVE (NEGATIVE); BLOOD NEGATIVE (NEGATIVE); CLARITY CLEAR (CLEAR); COLOR YELLOW (YELLOW); GLUCOSE NEGATIVE (NEGATIVE); KETONE NEGATIVE (NEGATIVE); LEUKO ESTERASE NEGATIVE (NEGATIVE); NITRITE NEGATIVE (NEGATIVE); PH 6.5 (5.0-9.0); SPECIFIC GRAVITY <= 1.005 (1.005-1.030); UROBILINOGEN 0.2 E.U./dl (0.2-1.0)
[2018-07-18 04:39] LABS: RBC 0-2 rbc/hpf (0-2); WBC 0-2 wbc/hpf (0-5)
[2018-07-18 06:35] LABS: ALBUMIN 2.8 gm/dl (3.1-4.5); ALKALINE PHOSPHATASE 146 U/L (45-117); BUN 5 mg/dl (7-24); CHLORIDE 106 mmol/L (98-107); CREATININE 0.39 mg/dL (0.70-1.30); PHOSPHOROUS 3.9 mg/dL (2.5-4.9); POTASSIUM 3.5 mmol/L (3.5-5.1); SGOT/AST 80 IU/L (3-35); SGPT/ALT 38 U/L (12-78); SODIUM 139 mmol/L (136-145); TOTAL PROTEIN 5.9 gm/dL (6.4-8.2)
[2018-07-18 06:53] LABS: HEMOGLOBIN 9.9 g/dl (14.0-18.0); MEAN CELL VOLUME 108.2 fl (80.0-94.0); MEAN CORPUSCULAR HGB 36.9 pg (27.0-31.0); MEAN CORPUSCULAR HGB CONC 34.1 g/dl (33.0-37.0); MEAN PLATELET VOLUME 9.8 fl (9.6-12.3); PLATELET COUNT AUTOMATED 117 10*3/uL (130-400); RED BLOOD COUNT 2.68 10*6/uL (4.50-5.90); RED CELL DISTRI WIDTH 13.5 % (0-14.5); WHITE BLOOD COUNT 8.9 10*3/uL (4.8-10.8)
[2018-07-18 07:12] LABS: PLATELET SUFFICIENCY LOW (NORMAL); TOTAL CELLS COUNTED 100 #CELLS
[2018-07-19] VITALS (7 sets, daily range): BP systolic 118–190; BP diastolic 83–112
[2018-07-20] VITALS (8 sets, daily range): BP systolic 138–200; BP diastolic 84–114
[2018-07-21 00:01] VITALS: BP 152/108
[2018-07-21 04:00] VITALS: BP 164/98
[2018-07-21 04:57] LABS: BASO # 0.1 10*3/uL (0.0-0.1); EOS # 0.1 10*3/uL (0.0-0.4); HEMOGLOBIN 11.5 g/dl (14.0-18.0); LYMPH # 2.1 10*3/uL (1.3-4.4); LYMPH % 29.5 % (27.0-41.0); MEAN CELL VOLUME 106.8 fl (80.0-94.0); MEAN CORPUSCULAR HGB 37.2 pg (27.0-31.0); MEAN CORPUSCULAR HGB CONC 34.8 g/dl (33.0-37.0); MONO # 0.8 10*3/uL (0.1-1.0); MONO % 10.8 % (3.0-9.0); NEUT % 56.3 % (47.0-73.0); PLATELET COUNT AUTOMATED 136 10*3/uL (130-400); RED BLOOD COUNT 3.09 10*6/uL (4.50-5.90)
[2018-07-21 05:23] LABS: BUN 6 mg/dl (7-24); CREATININE 0.58 mg/dL (0.70-1.30)
[2018-07-21 08:00] VITALS: BP 172/100
[2018-07-21 12:00] VITALS: BP 145/98
[2018-07-21 15:54] VITALS: BP 160/98
[2018-07-21 20:00] VITALS: BP 134/99
[2018-07-22] VITALS: BP 144/94
[2018-07-22 04:00] VITALS: BP 140/77
[2018-07-22 08:00] VITALS: BP 165/98
[2018-07-22 12:00] VITALS: BP 158/100
[2018-07-22 15:54] VITALS: BP 128/86
[2018-07-22 20:00] VITALS: BP 163/109
[2018-07-23] VITALS: BP 142/97
[2018-07-23 04:00] VITALS: BP 142/94
[2018-07-23 08:00] VITALS: BP 129/86
[2018-07-23 16:00] VITALS: BP 146/93
[2018-07-23 20:00] VITALS: BP 151/100
[2018-07-24] VITALS: BP 114/77
[2018-07-24 04:00] VITALS: BP 124/83
[2018-07-24 05:56] LABS: BUN 13 mg/dl (7-24)
[2018-07-24 06:20] LABS: BASO # 0.1 10*3/uL (0.0-0.1); BASO % 1.6 % (0.0-1.0); EOS # 0.2 10*3/uL (0.0-0.4); HEMATOCRIT 37.4 % (42.0-52.0); LYMPH # 3.1 10*3/uL (1.3-4.4); LYMPH % 37.9 % (27.0-41.0); MEAN CELL VOLUME 105.6 fl (80.0-94.0); MEAN CORPUSCULAR HGB 36.7 pg (27.0-31.0); MEAN CORPUSCULAR HGB CONC 34.8 g/dl (33.0-37.0); MEAN PLATELET VOLUME 10.6 fl (9.6-12.3); MONO % 12.3 % (3.0-9.0); NEUT # 3.7 10*3/uL (2.3-7.9); NEUT % 45.1 % (47.0-73.0); PLATELET COUNT AUTOMATED 176 10*3/uL (130-400); RED BLOOD COUNT 3.54 10*6/uL (4.50-5.90); RED CELL DISTRI WIDTH 12.7 % (0-14.5); WHITE BLOOD COUNT 8.1 10*3/uL (4.8-10.8)
[2018-07-24 08:00] VITALS: BP 122/78
[2018-07-24 12:00] VITALS: BP 116/77
[2018-07-24 16:00] VITALS: BP 116/77
[2018-07-24 20:00] VITALS: BP 125/95
[2018-07-25] VITALS: BP 138/91
[2018-07-25 04:00] VITALS: BP 110/70
[2018-07-25 08:00] VITALS: BP 113/69
[2018-07-25 12:00] VITALS: BP 113/76
[2018-07-25 15:23] VITALS: BP 111/81
[2018-07-25 20:00] VITALS: BP 123/95
[2018-07-26] VITALS: BP 143/97
[2018-07-26 04:00] VITALS: BP 146/95
[2018-07-26 08:00] VITALS: BP 148/97
[2018-07-26 12:00] VITALS: BP 137/89
[2018-07-26 16:00] VITALS: BP 130/87
[2018-07-26 20:00] VITALS: BP 107/53; BP 132/92
[2018-07-27] VITALS (7 sets, daily range): BP systolic 96–130; BP diastolic 54–91
[2018-07-27 05:24] LABS: BASO # 0.1 10*3/uL (0.0-0.1); BASO % 1.6 % (0.0-1.0); EOS # 0.1 10*3/uL (0.0-0.4); EOS % 1.3 % (1.0-4.0); HEMATOCRIT 37.3 % (42.0-52.0); HEMOGLOBIN 13.4 g/dl (14.0-18.0); LYMPH # 2.9 10*3/uL (1.3-4.4); LYMPH % 36.2 % (27.0-41.0); MEAN CELL VOLUME 102.2 fl (80.0-94.0); MEAN CORPUSCULAR HGB 36.7 pg (27.0-31.0); MEAN CORPUSCULAR HGB CONC 35.9 g/dl (33.0-37.0); MONO % 12.6 % (3.0-9.0); NEUT # 3.8 10*3/uL (2.3-7.9); NEUT % 47.4 % (47.0-73.0); PLATELET COUNT AUTOMATED 195 10*3/uL (130-400); RED BLOOD COUNT 3.65 10*6/uL (4.50-5.90); RED CELL DISTRI WIDTH 12.3 % (0-14.5)
[2018-07-27 05:54] LABS: ALBUMIN 3.8 gm/dl (3.1-4.5); ALKALINE PHOSPHATASE 97 U/L (45-117); BUN 10 mg/dl (7-24); CHLORIDE 95 mmol/L (98-107); CREATININE 0.84 mg/dL (0.70-1.30); POTASSIUM 3.8 mmol/L (3.5-5.1); SGOT/AST 69 IU/L (3-35); SGPT/ALT 47 U/L (12-78); SODIUM 131 mmol/L (136-145); TOTAL PROTEIN 7.4 gm/dL (6.4-8.2)
[2018-07-28 04:00] VITALS: BP 112/65
[2018-07-28 06:59] LABS: ALBUMIN 3.3 gm/dl (3.1-4.5); ALKALINE PHOSPHATASE 117 U/L (45-117); BUN 17 mg/dl (7-24); CHLORIDE 92 mmol/L (98-107); POTASSIUM 3.9 mmol/L (3.5-5.1); SGOT/AST 72 IU/L (3-35); SGPT/ALT 50 U/L (12-78); SODIUM 126 mmol/L (136-145); TOTAL PROTEIN 6.8 gm/dL (6.4-8.2)
[2018-07-28 08:00] VITALS: BP 95/62
[2018-07-28 12:00] VITALS: BP 104/68
[2018-07-28 16:00] VITALS: BP 102/70
[2018-07-28 20:00] VITALS: BP 127/74
[2018-07-29] VITALS: BP 132/80
[2018-07-29 07:22] LABS: BUN 12 mg/dl (7-24); CHLORIDE 88 mmol/L (98-107); POTASSIUM 3.8 mmol/L (3.5-5.1); SODIUM 122 mmol/L (136-145)
[2018-07-29 07:51] LABS: CREATININE 0.87 mg/dL (0.70-1.30)
[2018-07-29 08:00] VITALS: BP 115/80
[2018-07-29 09:54] VITALS: BP 134/76
[2018-07-29 12:00] VITALS: BP 150/81
[2018-07-29 16:00] VITALS: BP 114/71
[2018-07-29 20:00] VITALS: BP 130/78
[2018-07-30] VITALS: BP 135/79
[2018-07-30 06:49] LABS: ALBUMIN 3.3 gm/dl (3.1-4.5); ALKALINE PHOSPHATASE 93 U/L (45-117); BUN 6 mg/dl (7-24); CHLORIDE 85 mmol/L (98-107); CREATININE 0.69 mg/dL (0.70-1.30); POTASSIUM 3.6 mmol/L (3.5-5.1); SGOT/AST 73 IU/L (3-35); SGPT/ALT 51 U/L (12-78); TOTAL PROTEIN 6.5 gm/dL (6.4-8.2)
[2018-07-30 07:05] LABS: SODIUM 119 mmol/L (136-145)
[2018-07-30 07:16] LABS: BASO # 0.1 10*3/uL (0.0-0.1); BASO % 1.9 % (0.0-1.0); EOS # 0.1 10*3/uL (0.0-0.4); EOS % 1.3 % (1.0-4.0); HEMATOCRIT 29.3 % (42.0-52.0); HEMOGLOBIN 10.8 g/dl (14.0-18.0); LYMPH # 2.6 10*3/uL (1.3-4.4); LYMPH % 40.7 % (27.0-41.0); MEAN CELL VOLUME 99.3 fl (80.0-94.0); MEAN CORPUSCULAR HGB 36.6 pg (27.0-31.0); MEAN CORPUSCULAR HGB CONC 36.9 g/dl (33.0-37.0); MEAN PLATELET VOLUME 10.6 fl (9.6-12.3); MONO # 0.9 10*3/uL (0.1-1.0); MONO % 13.4 % (3.0-9.0); NEUT # 2.7 10*3/uL (2.3-7.9); NEUT % 41.8 % (47.0-73.0); PLATELET COUNT AUTOMATED 169 10*3/uL (130-400); RED BLOOD COUNT 2.95 10*6/uL (4.50-5.90); RED CELL DISTRI WIDTH 12.2 % (0-14.5); WHITE BLOOD COUNT 6.3 10*3/uL (4.8-10.8)
[2018-07-30 08:00] VITALS: BP 140/78
[2018-07-30 12:00] VITALS: BP 143/88
[2018-08-10] MEDS ORDERED: NEXIUM40 MG PO (03:44)
[2018-08-13] MEDS ORDERED: LOPRESSOR25 MG PO (09:56)
== END 2018-07-30 15:00 | disposition left against medical advice (07) | DRG 603 ==
LOC: ED 23:19 → 5E 07-18 00:25 → ICCU 07-18 00:25 → EDHOLD 07-18 00:25 → 5E 07-18 00:49 → ICCU 07-20 12:51 → 5E 07-28 17:27
PROVIDERS: Internal Medicine; Physician Assistant; Student in an Organized Health Care Education/Training Program; ADMIT Internal Medicine
DX: L03.115 Cellulitis of right lower limb (principal); E87.1 Hypo-osmolality and hyponatremia; E44.0 Moderate protein-calorie malnutrition; F10.231 Alcohol dependence with withdrawal delirium; N17.9 Acute kidney failure, unspecified; Z68.1 Body mass index [BMI] 19.9 or less, adult; F17.210 Nicotine dependence, cigarettes, uncomplicated; L03.116 Cellulitis of left lower limb; R00.0 Tachycardia, unspecified; Y90.8 Blood alcohol level of 240 mg/100 ml or more; F11.90 Opioid use, unspecified, uncomplicated; E55.9 Vitamin D deficiency, unspecified; E83.119 Hemochromatosis, unspecified; E53.8 Deficiency of other specified B group vitamins; R73.9 Hyperglycemia, unspecified; E83.42 Hypomagnesemia; R74.0 Nonspecific elevation of levels of transaminase and lactic acid dehydrogenase [LDH]; D53.9 Nutritional anemia, unspecified; K21.9 Gastro-esophageal reflux disease without esophagitis; I10 Essential (primary) hypertension; Z91.030 Bee allergy status; Z80.8 Family history of malignant neoplasm of other organs or systems; Z79.899 Other long term (current) drug therapy; Z71.6 Tobacco abuse counseling; Z78.1 Physical restraint status

== ENCOUNTER 2018-11-10 04:51 | Emergency (ER) | payer SELFPAY ==
[~2018-11-10] VITALS: Ht 182.8 cm; Wt 72.6 kg
[~2018-11-10 04:51] MED LIST changes: +LOPRESSOR25 MG PO
== END 2018-11-10 06:39 | disposition expired ==
LOC: ED 04:51
DX: I46.9 Cardiac arrest, cause unspecified (principal); R17 Unspecified jaundice; K21.9 Gastro-esophageal reflux disease without esophagitis; I10 Essential (primary) hypertension; F17.210 Nicotine dependence, cigarettes, uncomplicated; Z91.030 Bee allergy status; Z79.899 Other long term (current) drug therapy